=== PATIENT | male | born 1945 | race Caucasian/White ===

== ENCOUNTER 2017-10-11 12:44 | Inpatient (IN) | payer MEDICARE, BC ==
[2017-10-11 14:03] LABS: BILIRUBIN,URINE MODERATE (NEG); CLARITY,URINE CLOUDY; COLOR,URINE AMBER; GLUCOSE,URINE NEGATIVE (NEG); NITRITE,URINE POSITIVE (NEG); PROTEIN,URINE 100 mg/dL (NEG-TRACE)
[2017-10-11 14:08] LABS: BASO # 0.1 x10^3/uL (0.0-0.2); BASO % 0 % (0-3); EOS % 0 % (0-3); HEMOGLOBIN 12.6 g/dL (13.0-17.5); LYMPH # 0.5 x10^3/uL (1.0-4.8); LYMPH % 3 % (24-48); MEAN CORPUSCULAR HEMOGLOBIN 33 pg (25-35); MEAN CORPUSCULAR HGB CONC 34 g/dL (31-37); MEAN CORPUSCULAR VOLUME 98 fL (79-100); MONO # 1.3 x10^3/uL (0.0-1.1); MONO % 6 % (0-9); NEUT # 18.2 x10^3uL (1.8-7.7); NEUT % 91 % (31-73); PLATELET COUNT 358 x10^3/uL (140-400); RED CELL DISTRIBUTION WIDTH 14.3 % (11.5-14.5)
[2017-10-11 14:13] LABS: BACTERIA,URINE MANY /HPF (0-FEW); RBC,URINE OCC /HPF (0-2); SQUAMOUS EPITHELIAL CELL,UR FEW /LPF
[2017-10-11 14:15] LABS: ADD MAN DIFF? YES
[2017-10-11 14:29] LABS: ANION GAP 15 (6-14); BLOOD UREA NITROGEN 24 mg/dL (8-26); CARBON DIOXIDE 26 mmol/L (21-32); CHLORIDE 97 mmol/L (98-107); CREATININE 0.7 mg/dL (0.7-1.3); GFR 111.2; GLUCOSE 135 mg/dL (70-99); POTASSIUM 3.9 mmol/L (3.5-5.1); SODIUM 138 mmol/L (136-145)
[2017-10-11 14:33] LABS: CREATINE KINASE 174 U/L (39-308)
[2017-10-11 14:34] LABS: ALBUMIN 2.2 g/dL (3.4-5.0); ALK PHOS 138 U/L (46-116); ALT (SGPT) 21 U/L (16-63); AST (SGOT) 33 U/L (15-37); DIRECT BILIRUBIN 3.2 mg/dL (0.0-0.2); LIPASE 76 U/L (73-393); TOTAL BILIRUBIN 3.8 mg/dL (0.2-1.0); TOTAL PROTEIN 6.6 g/dL (6.4-8.2)
[2017-10-11 14:36] LABS: LACTIC ACID 1.5 mmol/L (0.4-2.0)
[2017-10-11 14:39] LABS: % BANDS 5 % (0-9); % LYMPHS 9 % (24-48); % MONOS 4 % (0-10); % SEGS 82 % (35-66); PLT ESTIMATE ADEQUATE (ADEQUATE)
[2017-10-11 14:40] LABS: TOXIC GRANULATION SLIGHT
[2017-10-11 14:40] LABS: TROPONINI < 0.017 ng/mL (0.000-0.055)
[2017-10-11] MEDS: IV NORMAL SALINE 1000ML BAG 1,000 ML IV (15:24)
[2017-10-11] MEDS ORDERED: ONDANSETRON PF 4 MG/2 ML VIAL. IV (15:30)
[2017-10-11] MEDS: risperiDONE 1 MG TABLET. PO (21:21)
[2017-10-12] MEDS: LORazepam 0.5 MG TABLET PO (00:10)
[2017-10-12] MEDS: IV NORMAL SALINE 1000ML BAG 1,000 ML IV ×3 (02:28→14:21)
[2017-10-12] MEDS: ACETAMINOPHEN 325 MG TABLET. PO ×2 (03:25→12:08)
[2017-10-12 04:47] LABS: ADD MAN DIFF? NO
[2017-10-12 04:53] LABS: BASO % 0 % (0-3); EOS % 0 % (0-3); HEMATOCRIT 32.8 % (39.0-53.0); LYMPH # 0.7 x10^3/uL (1.0-4.8); LYMPH % 4 % (24-48); MEAN CORPUSCULAR HEMOGLOBIN 33 pg (25-35); MEAN CORPUSCULAR HGB CONC 34 g/dL (31-37); MEAN CORPUSCULAR VOLUME 98 fL (79-100); MONO # 1.1 x10^3/uL (0.0-1.1); MONO % 7 % (0-9); NEUT % 89 % (31-73); PLATELET COUNT 315 x10^3/uL (140-400); RED BLOOD COUNT 3.36 x10^6/uL (4.30-5.70); RED CELL DISTRIBUTION WIDTH 14.5 % (11.5-14.5); WHITE BLOOD COUNT 16.8 x10^3/uL (4.0-11.0)
[2017-10-12 05:07] LABS: ANION GAP 13 (6-14); BLOOD UREA NITROGEN 22 mg/dL (8-26); CALCIUM 9.2 mg/dL (8.5-10.1); CARBON DIOXIDE 24 mmol/L (21-32); CHLORIDE 99 mmol/L (98-107); CREATININE 0.7 mg/dL (0.7-1.3); GFR 111.2; GLUCOSE 129 mg/dL (70-99); POTASSIUM 3.3 mmol/L (3.5-5.1); SODIUM 136 mmol/L (136-145)
[2017-10-12 07:01] LABS: POC GLUCOSE 128 mg/dL (70-99)
[2017-10-12] MEDS: cefTRIAXone IV Push 1 GM VIAL. IVP (08:20)
[2017-10-12] MEDS: MORPHINE SULFATE 2 MG/ML DISP.SYRIN. IV ×2 (08:20→11:45)
[2017-10-12] MEDS ORDERED: POTASSIUM CHLORIDE 20 MEQ/15 ML ORAL LIQUID. PO (10:30)
[2017-10-12] MEDS ORDERED: SODIUM PHOSPHATE 15 MMOL in IV NORMAL SALINE 250ML 250 ML IV (10:30)
[2017-10-12] MEDS ORDERED: POTASSIUM CHLORIDE 20 MEQ/15 ML ORAL LIQUID. FT (10:30)
[2017-10-12 11:44] LABS: CREATINE KINASE 83 U/L (39-308)
[2017-10-12 11:53] LABS: THYROID STIM HORMONE (TSH) 0.126 uIU/mL (0.358-3.74)
[2017-10-12 12:00] LABS: VITAMIN-B12 935 pg/mL (247-911)
[2017-10-12] MEDS: POTASSIUM CHLORIDE 20 MEQ TABLET.ER. PO (12:09)
[2017-10-12] MEDS: PIPERACILLIN/TAZO IV Push 3.375 GM VIAL. IVP (15:16)
[2017-10-12] MEDS: VANCOMYCIN 1.5 GM in IV DEXTROSE 5 %-0.2 % NACL 500 ML IV (15:19)
[2017-10-12 15:26] LABS: LACTIC ACID 1.5 mmol/L (0.4-2.0)
[2017-10-12] MEDS: VANCOMYCIN PER PHARMACY MC (15:29)
[2017-10-12] MEDS ORDERED: POTASSIUM CHLORIDE 20MEQ 50 ML IV (16:30)
[2017-10-12] MEDS ORDERED: PIPERACILLIN/TAZOBACTAM 3.375 GM in IV DEXTROSE 5% 50 ML IV (18:00)
[2017-10-12 18:14] LABS: SEDIMENTATION RATE 105 (0-15)
[2017-10-12] MEDS: POTASSIUM CHLORIDE 10 MEQ in IV NORMAL SALINE 100ML 100 ML IV ×2 (18:22→19:37)
[2017-10-12] MEDS: ENOXAPARIN 40 MG/0.4 ML SYRINGE. SQ (20:55)
[2017-10-12] MEDS ORDERED: POTASSIUM & SODIUM PHOSPHATES PACKET. PO (21:00)
[2017-10-12] MEDS ORDERED: MAGNESIUM OXIDE 400 MG TABLET PO (21:00)
[2017-10-12 21:27] LABS: FREE T4 1.37 ng/dL (0.76-1.46)
[2017-10-12 23:09] LABS: AMMONIA 23 mcmol/L (11-34)
[2017-10-12 23:09] LABS: ALBUMIN 1.7 g/dL (3.4-5.0); ALBUMIN/GLOBULIN RATIO 0.4 (1.0-1.7); ALK PHOS 126 U/L (46-116); ALT (SGPT) 19 U/L (16-63); ANION GAP 13 (6-14); AST (SGOT) 31 U/L (15-37); BLOOD UREA NITROGEN 16 mg/dL (8-26); BUN/CREATININE RATIO 23 (6-20); CALCIUM 8.5 mg/dL (8.5-10.1); CARBON DIOXIDE 23 mmol/L (21-32); CHLORIDE 104 mmol/L (98-107); CREATININE 0.7 mg/dL (0.7-1.3); GFR 111.2; GLUCOSE 117 mg/dL (70-99); POTASSIUM 3.5 mmol/L (3.5-5.1); SODIUM 140 mmol/L (136-145); TOTAL BILIRUBIN 3.1 mg/dL (0.2-1.0); TOTAL PROTEIN 6.4 g/dL (6.4-8.2)
[2017-10-13] MEDS: PIPERACILLIN/TAZO IV Push 3.375 GM VIAL. IVP ×2 (00:03→06:16)
[2017-10-13] MEDS: VANCOMYCIN 1 GM in IV 1/2 NORMAL SALINE 250 ML IV ×2 (03:00→15:45)
[2017-10-13 09:22] LABS: ADD MAN DIFF? NO
[2017-10-13 09:25] LABS: BASO % 0 % (0-3); EOS % 0 % (0-3); HEMATOCRIT 34.4 % (39.0-53.0); HEMOGLOBIN 11.4 g/dL (13.0-17.5); LYMPH # 0.7 x10^3/uL (1.0-4.8); LYMPH % 4 % (24-48); MEAN CORPUSCULAR HEMOGLOBIN 32 pg (25-35); MEAN CORPUSCULAR HGB CONC 33 g/dL (31-37); MEAN CORPUSCULAR VOLUME 98 fL (79-100); MONO % 5 % (0-9); NEUT # 18.4 x10^3uL (1.8-7.7); NEUT % 91 % (31-73); PLATELET COUNT 336 x10^3/uL (140-400); RED BLOOD COUNT 3.53 x10^6/uL (4.30-5.70); RED CELL DISTRIBUTION WIDTH 14.5 % (11.5-14.5); WHITE BLOOD COUNT 20.1 x10^3/uL (4.0-11.0)
[2017-10-13] MEDS ORDERED: ONDANSETRON ODT 4 MG TAB.RAPDIS. PO (09:30)
[2017-10-13] MEDS ORDERED: ONDANSETRON PF 4 MG/2 ML VIAL. IV (09:30)
[2017-10-13 09:49] LABS: ANION GAP 15 (6-14); BLOOD UREA NITROGEN 16 mg/dL (8-26); CALCIUM 8.8 mg/dL (8.5-10.1); CARBON DIOXIDE 24 mmol/L (21-32); CHLORIDE 103 mmol/L (98-107); CREATININE 0.7 mg/dL (0.7-1.3); GFR 111.2; GLUCOSE 119 mg/dL (70-99); PHOSPHORUS 3.5 mg/dL (2.6-4.7); SODIUM 142 mmol/L (136-145)
[2017-10-13 09:54] LABS: POTASSIUM 2.9 mmol/L (3.5-5.1)
[2017-10-13] MEDS: LISINOPRIL 40 MG TABLET. PO (10:36)
[2017-10-13] MEDS: ALLOPURINOL 300 MG TABLET. PO (10:36)
[2017-10-13] MEDS: buPROPion XL 150 MG TAB.ER.24H. PO (10:37)
[2017-10-13] MEDS: TAMSULOSIN 0.4 MG CAP.ER.24H. PO (10:37)
[2017-10-13] MEDS: CITALOPRAM 20 MG TABLET. PO (10:37)
[2017-10-13] MEDS: PANTOPRAZOLE 40 MG TABLET.DR. PO (10:37)
[2017-10-13] MEDS: GABAPENTIN 400 MG CAPSULE. PO ×3 (10:37→21:22)
[2017-10-13] MEDS: ATORVASTATIN CALCIUM 40 MG TABLET. PO (10:37)
[2017-10-13] MEDS: VANCOMYCIN PER PHARMACY MC (13:10)
[2017-10-13 13:16] LABS: RHEUMATOID FACTOR <10.0 IU/mL (0.0-13.9)
[2017-10-13] MEDS: POTASSIUM CHLORIDE 20 MEQ TABLET.ER. PO ×2 (13:47→13:48)
[2017-10-13] MEDS: POTASSIUM CL 30MEQ D5-0.45NACL 1,000 ML IV (13:47)
[2017-10-13] MEDS: ACETAMINOPHEN 325 MG TABLET. PO ×2 (15:48→23:22)
[2017-10-13 16:00] LABS: BF CLARITY TURBID; BF COLOR YELLOW; BF MON % 2 %; BF PMN % 98 %; BF RBC COUNT 22750 /cmm; BF SOURCE SYNOVIAL; BF WBC COUNT 107500 /cmm
[2017-10-13 19:51] LABS: INFLUENZA A PATIENT NEGATIVE (NEGATIVE); INFLUENZA B PATIENT NEGATIVE (NEGATIVE); OBC FLU VALID
[2017-10-13] MEDS: GADOBUTROL 7.5 MMOL/7.5 ML VIAL IV (20:00)
[2017-10-13] MEDS: LACTOBACILLUS RHAMNOSUS GG 1 CAPSULE. PO (21:22)
[2017-10-13] MEDS: ENOXAPARIN 40 MG/0.4 ML SYRINGE. SQ (21:26)
[2017-10-13] MEDS: LABETALOL 20 MG/4 ML DISP.SYRIN. IVP (23:21)
[2017-10-14 04:14] LABS: VANC TR 10.6 mcg/mL (10.0-20.0)
[2017-10-14] MEDS: VANCOMYCIN 1 GM in IV 1/2 NORMAL SALINE 250 ML IV (04:55)
[2017-10-14] MEDS: VANCOMYCIN PER PHARMACY MC ×2 (06:01→06:02)
[2017-10-14] MEDS ORDERED: fentaNYL PF VIAL 100 MCG/2 ML VIAL IV ×2 (07:00)
[2017-10-14] MEDS ORDERED: PROCHLORPERAZINE 10 MG/2 ML VIAL. IV (07:00)
[2017-10-14] MEDS ORDERED: HYDROmorphone 2 MG/ML VIAL IV (07:00)
[2017-10-14] MEDS ORDERED: MORPHINE SULFATE 2 MG/ML DISP.SYRIN. IV (07:00)
[2017-10-14] MEDS: IV RINGERS,LACTATED 1000ML 1,000 ML IV (07:00)
[2017-10-14] MEDS ORDERED: LIDOCAINE 1% PF 2 ML VIAL. ID (07:00)
[2017-10-14] MEDS: PANTOPRAZOLE 40 MG TABLET.DR. PO (07:30)
[2017-10-14 07:53] LABS: ANION GAP 12 (6-14); BLOOD UREA NITROGEN 18 mg/dL (8-26); CALCIUM 8.7 mg/dL (8.5-10.1); CARBON DIOXIDE 24 mmol/L (21-32); CHLORIDE 109 mmol/L (98-107); CREATININE 0.8 mg/dL (0.7-1.3); GFR 95.3; GLUCOSE 135 mg/dL (70-99); POTASSIUM 3.9 mmol/L (3.5-5.1); SODIUM 145 mmol/L (136-145)
[2017-10-14] MEDS: buPROPion XL 150 MG TAB.ER.24H. PO (08:00)
[2017-10-14] MEDS: MELOXICAM 7.5 MG TABLET PO (09:00)
[2017-10-14] MEDS: LACTOBACILLUS RHAMNOSUS GG 1 CAPSULE. PO ×2 (09:00→23:28)
[2017-10-14] MEDS: CITALOPRAM 20 MG TABLET. PO (09:00)
[2017-10-14] MEDS: ALLOPURINOL 300 MG TABLET. PO (09:00)
[2017-10-14] MEDS: ATORVASTATIN CALCIUM 40 MG TABLET. PO (09:00)
[2017-10-14] MEDS: GABAPENTIN 400 MG CAPSULE. PO ×3 (09:00→23:28)
[2017-10-14] MEDS: LISINOPRIL 40 MG TABLET. PO (09:00)
[2017-10-14] MEDS: TAMSULOSIN 0.4 MG CAP.ER.24H. PO (09:00)
[2017-10-14] MEDS: ALBUTEROL SULFATE 2.5 MG/3 ML NEBU. NEB (10:24)
[2017-10-14 10:42] LABS: BASE EXCESS ABG -2 mmol/L (-3-3); HCO3 ABG 23 mmol/L (21-28); PCO2 ABG 37 mmHg (35-46); PH ABG 7.41 (7.35-7.45); PO2 ABG 75 mmHg (65-108); SAT O2 ABG 94 % (92-99)
[2017-10-14] MEDS: IPRATRPIUM/ALBUTEROL 0.5/2.5MG 3 ML NEBU. NEB ×3 (12:00→18:15)
[2017-10-14] MEDS ORDERED: LIDOCAINE 2% PF Vial for OR 5 ML VIAL. (13:24)
[2017-10-14] MEDS ORDERED: DEXAMETHASONE SOD PHOS 20 MG/5 ML VIAL. (13:24)
[2017-10-14] MEDS ORDERED: ONDANSETRON PF 4 MG/2 ML VIAL. (13:24)
[2017-10-14] MEDS ORDERED: PROPOFOL 20 ML IV (13:24)
[2017-10-14] MEDS: BUPIVAC MPF-EPI 0.75%-1:200000 30 ML VIAL. INJ (13:47)
[2017-10-14] MEDS: EPINEPHrine VIAL 30 MG/30 ML VIAL (13:47)
[2017-10-14] MEDS ORDERED: fentaNYL PF VIAL 100 MCG/2 ML VIAL (13:52)
[2017-10-14] MEDS ORDERED: SEVOFLURANE 31 TO 60 MINUTES. IH (14:07)
[2017-10-14] MEDS ORDERED: DEXTROSE 50% 25 GM / 50ML DISP.SYRIN. IV (14:15)
[2017-10-14] MEDS ORDERED: POLYETHYLENE GLYCOL 3350 17 GM PACKET. PO (14:15)
[2017-10-14] MEDS: ASPIRIN 325 MG TABLET PO (15:00)
[2017-10-14] MEDS: oxyCODONE/APAP 7.5/325 1 TAB TABLET PO (16:56)
[2017-10-14] MEDS: SENNOSIDES/DOCUSATE 8.6/50MG TABLET. PO (16:56)
[2017-10-14] MEDS: POTASSIUM CHLORIDE 20 MEQ TABLET.ER. PO (16:58)
[2017-10-14] MEDS: VANCOMYCIN 1.25 GM in IV DEXTROSE 5% 250 ML IV (17:06)
[2017-10-14] MEDS ORDERED: PIPERACILLIN/TAZOBACTAM 3.375 GM in IV DEXTROSE 5% 50 ML IV (18:00)
[2017-10-14] MEDS: PIPERACILLIN/TAZO IV Push 3.375 GM VIAL. IVP ×2 (18:01→23:46)
[2017-10-14] MEDS: HYDROcodone/APAP 5/325MG 1 TAB TABLET PO (23:28)
[2017-10-14] MEDS: ENOXAPARIN 40 MG/0.4 ML SYRINGE. SQ (23:30)
[2017-10-15] MEDS: VANCOMYCIN 1.25 GM in IV DEXTROSE 5% 250 ML IV (05:59)
[2017-10-15] MEDS ORDERED: MAGNESIUM HYDROXIDE 2,400 MG/30 ML ORAL.SUSP. PO (06:00)
[2017-10-15] MEDS: PIPERACILLIN/TAZO IV Push 3.375 GM VIAL. IVP ×3 (07:38→18:34)
[2017-10-15 07:52] LABS: ANION GAP 11 (6-14); BLOOD UREA NITROGEN 47 mg/dL (8-26); CALCIUM 8.2 mg/dL (8.5-10.1); CARBON DIOXIDE 21 mmol/L (21-32); CHLORIDE 101 mmol/L (98-107); CREATININE 2.6 mg/dL (0.7-1.3); GFR 24.5; GLUCOSE 179 mg/dL (70-99); POTASSIUM 5.3 mmol/L (3.5-5.1); SODIUM 133 mmol/L (136-145)
[2017-10-15] MEDS: POTASSIUM CHLORIDE 20 MEQ TABLET.ER. PO (08:00)
[2017-10-15] MEDS: IPRATRPIUM/ALBUTEROL 0.5/2.5MG 3 ML NEBU. NEB ×4 (09:11→19:40)
[2017-10-15] MEDS: ALLOPURINOL 300 MG TABLET. PO (10:33)
[2017-10-15] MEDS: CITALOPRAM 20 MG TABLET. PO (10:33)
[2017-10-15] MEDS: oxyCODONE/APAP 7.5/325 1 TAB TABLET PO (10:33)
[2017-10-15] MEDS: ASPIRIN 325 MG TABLET PO (10:33)
[2017-10-15] MEDS: buPROPion XL 150 MG TAB.ER.24H. PO (10:33)
[2017-10-15] MEDS: LISINOPRIL 40 MG TABLET. PO (10:34)
[2017-10-15] MEDS: MELOXICAM 7.5 MG TABLET PO (10:35)
[2017-10-15] MEDS: LACTOBACILLUS RHAMNOSUS GG 1 CAPSULE. PO (10:35)
[2017-10-15] MEDS: GABAPENTIN 400 MG CAPSULE. PO ×2 (10:35→14:28)
[2017-10-15] MEDS: SENNOSIDES/DOCUSATE 8.6/50MG TABLET. PO (10:36)
[2017-10-15] MEDS: PANTOPRAZOLE 40 MG TABLET.DR. PO (10:36)
[2017-10-15] MEDS: TAMSULOSIN 0.4 MG CAP.ER.24H. PO (10:36)
[2017-10-15] MEDS: ATORVASTATIN CALCIUM 40 MG TABLET. PO (10:36)
[2017-10-15] MEDS ORDERED: BISACODYL 10 MG SUPP.RECT. PR (16:00)
[2017-10-15] MEDS ORDERED: MAGNESIUM SULFATE 2GM 50 ML IV (16:30)
[2017-10-15] MEDS ORDERED: IV NORMAL SALINE 500ML BAG 500 ML IV (16:30)
[2017-10-15 17:33] LABS: URIC ACID 4.3 mg/dL (3.5-7.2)
[2017-10-15 17:33] LABS: CREATINE KINASE 57 U/L (39-308)
[2017-10-15] MEDS: SODIUM POLYSTYRENE SULFONATE 15 GM/60 ML ORAL.SUSP. PO (18:34)
[2017-10-15] MEDS: IV NORMAL SALINE 1000ML BAG 1,000 ML IV (18:39)
[2017-10-16] MEDS: GABAPENTIN 400 MG CAPSULE. PO ×4 (00:17→23:38)
[2017-10-16] MEDS: LACTOBACILLUS RHAMNOSUS GG 1 CAPSULE. PO ×3 (00:17→23:37)
[2017-10-16] MEDS: ENOXAPARIN 30 MG/0.3 ML SYRINGE. SQ ×2 (00:17→23:37)
[2017-10-16] MEDS: IV NORMAL SALINE 1000ML BAG 1,000 ML IV ×3 (00:18→18:39)
[2017-10-16] MEDS: PIPERACILLIN/TAZO IV Push 3.375 GM VIAL. IVP ×3 (02:11→12:00)
[2017-10-16 04:51] LABS: ADD MAN DIFF? NO
[2017-10-16 05:12] LABS: BASO % 0 % (0-3); EOS % 0 % (0-3); HEMATOCRIT 28.1 % (39.0-53.0); HEMOGLOBIN 9.3 g/dL (13.0-17.5); LYMPH % 6 % (24-48); MEAN CORPUSCULAR HEMOGLOBIN 33 pg (25-35); MEAN CORPUSCULAR HGB CONC 33 g/dL (31-37); MEAN CORPUSCULAR VOLUME 98 fL (79-100); MONO # 0.7 x10^3/uL (0.0-1.1); MONO % 5 % (0-9); NEUT # 14.7 x10^3uL (1.8-7.7); NEUT % 89 % (31-73); PLATELET COUNT 307 x10^3/uL (140-400); RED BLOOD COUNT 2.87 x10^6/uL (4.30-5.70); RED CELL DISTRIBUTION WIDTH 14.7 % (11.5-14.5); WHITE BLOOD COUNT 16.6 x10^3/uL (4.0-11.0)
[2017-10-16 05:57] LABS: ALBUMIN 1.3 g/dL (3.4-5.0); ALBUMIN/GLOBULIN RATIO 0.3 (1.0-1.7); ALK PHOS 112 U/L (46-116); ALT (SGPT) 23 U/L (16-63); ANION GAP 14 (6-14); AST (SGOT) 58 U/L (15-37); BLOOD UREA NITROGEN 60 mg/dL (8-26); BUN/CREATININE RATIO 15 (6-20); CALCIUM 7.6 mg/dL (8.5-10.1); CARBON DIOXIDE 19 mmol/L (21-32); CHLORIDE 102 mmol/L (98-107); CREATININE 3.9 mg/dL (0.7-1.3); GFR 15.3; GLUCOSE 113 mg/dL (70-99); MAGNESIUM 1.9 mg/dL (1.8-2.4); PHOSPHORUS 4.2 mg/dL (2.6-4.7); POTASSIUM 4.8 mmol/L (3.5-5.1); SODIUM 135 mmol/L (136-145); TOTAL BILIRUBIN 1.3 mg/dL (0.2-1.0); TOTAL PROTEIN 5.8 g/dL (6.4-8.2)
[2017-10-16] MEDS: IPRATRPIUM/ALBUTEROL 0.5/2.5MG 3 ML NEBU. NEB ×4 (07:34→19:41)
[2017-10-16] MEDS: ASPIRIN 325 MG TABLET PO (08:00)
[2017-10-16 08:53] LABS: BILIRUBIN,URINE NEGATIVE (NEG); CLARITY,URINE CLEAR; COLOR,URINE YELLOW; GLUCOSE,URINE NEGATIVE (NEG); NITRITE,URINE NEGATIVE (NEG); PH,URINE 5.5; PROTEIN,URINE 30 mg/dL (NEG-TRACE)
[2017-10-16] MEDS: ALLOPURINOL 300 MG TABLET. PO (09:00)
[2017-10-16 09:04] LABS: BACTERIA,URINE MODERATE /HPF (0-FEW)
[2017-10-16 09:05] LABS: AMORPHOUS SEDIMENT,UR PRESENT /HPF
[2017-10-16 10:28] LABS: T-SPOT TB TEST(OXFORD) SEE SEPARATE REPORT
[2017-10-16] MEDS: NICOTINE 21MG PATCH. TD (11:46)
[2017-10-16] MEDS: buPROPion XL 150 MG TAB.ER.24H. PO (11:47)
[2017-10-16] MEDS: CITALOPRAM 20 MG TABLET. PO (11:47)
[2017-10-16] MEDS: ATORVASTATIN CALCIUM 40 MG TABLET. PO (11:47)
[2017-10-16] MEDS: TAMSULOSIN 0.4 MG CAP.ER.24H. PO (11:47)
[2017-10-16] MEDS: PANTOPRAZOLE 40 MG TABLET.DR. PO (11:48)
[2017-10-16] MEDS: HYDROcodone/APAP 7.5/325MG 1 TAB TABLET PO (11:48)
[2017-10-16] MEDS: SENNOSIDES/DOCUSATE 8.6/50MG TABLET. PO (11:48)
[2017-10-16] MEDS: LIDOCAINE 2% VISCOUS 15 ML SOLUTION. MM (14:15)
[2017-10-16] MEDS: BENZOCAINE ONE 20% MUCOSAL SPRAY. MM (14:15)
[2017-10-16] MEDS: LIDOCAINE 2% TOPICAL JELLY 5GM TUBE. TP (14:15)
[2017-10-16] MEDS ORDERED: 0.9 % SODIUM CHLORIDE 10 ML DISP.SYRIN. IV (14:15)
[2017-10-16 14:21] LABS: C3 COMPLEMENT 143 mg/dL (82-167); C4 COMPLEMENT 20 mg/dL (14-44)
[2017-10-16] MEDS: PIPERACILLIN/TAZO IV Push 2.25 GM VIAL. IVP ×2 (18:47→23:35)
[2017-10-16] MEDS: HYDROcodone/APAP 5/325MG 1 TAB TABLET PO (23:37)
[2017-10-17] MEDS: IV NORMAL SALINE 1000ML BAG 1,000 ML IV ×4 (02:20→21:26)
[2017-10-17] MEDS: ACETAMINOPHEN 325 MG TABLET. PO (02:20)
[2017-10-17] MEDS: PIPERACILLIN/TAZO IV Push 2.25 GM VIAL. IVP ×5 (06:10→21:27)
[2017-10-17 06:28] LABS: ALBUMIN 1.3 g/dL (3.4-5.0); ANION GAP 18 (6-14); BLOOD UREA NITROGEN 70 mg/dL (8-26); CALCIUM 7.6 mg/dL (8.5-10.1); CARBON DIOXIDE 19 mmol/L (21-32); CHLORIDE 103 mmol/L (98-107); CREATININE 4.9 mg/dL (0.7-1.3); GFR 11.8; GLUCOSE 87 mg/dL (70-99); POTASSIUM 4.4 mmol/L (3.5-5.1); SODIUM 140 mmol/L (136-145)
[2017-10-17] MEDS: IV RINGERS,LACTATED 1000ML 1,000 ML IV (07:00)
[2017-10-17] MEDS ORDERED: fentaNYL PF VIAL 100 MCG/2 ML VIAL IV ×2 (07:00)
[2017-10-17] MEDS ORDERED: MORPHINE SULFATE 2 MG/ML DISP.SYRIN. IV (07:00)
[2017-10-17] MEDS ORDERED: LIDOCAINE 1% PF 2 ML VIAL. ID (07:00)
[2017-10-17] MEDS ORDERED: PROCHLORPERAZINE 10 MG/2 ML VIAL. IV (07:00)
[2017-10-17] MEDS ORDERED: HYDROmorphone 2 MG/ML VIAL IV (07:00)
[2017-10-17] MEDS: IPRATRPIUM/ALBUTEROL 0.5/2.5MG 3 ML NEBU. NEB ×4 (07:26→19:25)
[2017-10-17] MEDS: PANTOPRAZOLE 40 MG TABLET.DR. PO (07:30)
[2017-10-17] MEDS: buPROPion XL 150 MG TAB.ER.24H. PO (08:00)
[2017-10-17] MEDS: ATORVASTATIN CALCIUM 40 MG TABLET. PO (09:00)
[2017-10-17] MEDS: LACTOBACILLUS RHAMNOSUS GG 1 CAPSULE. PO ×2 (09:00→21:27)
[2017-10-17] MEDS: CITALOPRAM 20 MG TABLET. PO (09:00)
[2017-10-17] MEDS: NICOTINE 21MG PATCH. TD (09:00)
[2017-10-17] MEDS: SENNOSIDES/DOCUSATE 8.6/50MG TABLET. PO (09:00)
[2017-10-17] MEDS: TAMSULOSIN 0.4 MG CAP.ER.24H. PO (09:00)
[2017-10-17] MEDS: GABAPENTIN 400 MG CAPSULE. PO ×2 (09:00→14:00)
[2017-10-17] MEDS: LABETALOL 20 MG/4 ML DISP.SYRIN. IVP ×4 (09:34→21:43)
[2017-10-17] MEDS ORDERED: LIDOCAINE WITH 8.4% SOD BICARB 3 ML DISP.SYRIN. IJ (12:37)
[2017-10-17] MEDS ORDERED: HEPARIN for IV BOLUS 10,000 UNIT/10 ML VIAL. (12:37)
[2017-10-17] MEDS ORDERED: PROPOFOL 0 ML IV (12:42)
[2017-10-17] MEDS ORDERED: LIDOCAINE 2% TOPICAL JELLY 5GM TUBE. TP (13:05)
[2017-10-17] MEDS: LIDOCAINE WITH 8.4% SOD BICARB 3 ML DISP.SYRIN. IJ (14:28)
[2017-10-17] MEDS: LIDOCAINE 2% JELLY 6ML IN APPLICATOR. MM (17:00)
[2017-10-17] MEDS: oxyCODONE/APAP 7.5/325 1 TAB TABLET PO (21:28)
[2017-10-17] MEDS: HEPARIN PF for SUB-Q USE 5,000 UNIT/0.5 ML VIAL. SQ (21:41)
[2017-10-18 05:16] LABS: PROTEINASE 3 ANTIBODY 4.5 U/mL (0.0-3.5)
[2017-10-18 05:16] LABS: MYELOPEROXIDASE ABY <9.0 U/mL (0.0-9.0)
[2017-10-18] MEDS: IV NORMAL SALINE 1000ML BAG 1,000 ML IV ×3 (05:19→17:55)
[2017-10-18] MEDS: PANTOPRAZOLE 40 MG TABLET.DR. PO (05:19)
[2017-10-18] MEDS: PIPERACILLIN/TAZO IV Push 2.25 GM VIAL. IVP ×3 (05:19→22:07)
[2017-10-18] MEDS: HEPARIN PF for SUB-Q USE 5,000 UNIT/0.5 ML VIAL. SQ ×3 (05:20→22:14)
[2017-10-18] MEDS: LABETALOL 20 MG/4 ML DISP.SYRIN. IVP (05:20)
[2017-10-18 05:22] LABS: HEMATOCRIT 23.9 % (39.0-53.0); HEMOGLOBIN 7.9 g/dL (13.0-17.5); MEAN CORPUSCULAR HEMOGLOBIN 32 pg (25-35); MEAN CORPUSCULAR HGB CONC 33 g/dL (31-37); MEAN CORPUSCULAR VOLUME 97 fL (79-100); PLATELET COUNT 320 x10^3/uL (140-400); RED BLOOD COUNT 2.45 x10^6/uL (4.30-5.70); RED CELL DISTRIBUTION WIDTH 14.9 % (11.5-14.5)
[2017-10-18 05:59] LABS: ALBUMIN 1.2 g/dL (3.4-5.0); ANION GAP 21 (6-14); BLOOD UREA NITROGEN 75 mg/dL (8-26); CALCIUM 7.8 mg/dL (8.5-10.1); CARBON DIOXIDE 16 mmol/L (21-32); CHLORIDE 105 mmol/L (98-107); CREATININE 5.6 mg/dL (0.7-1.3); GFR 10.1; GLUCOSE 87 mg/dL (70-99); PHOSPHORUS 6.9 mg/dL (2.6-4.7); POTASSIUM 4.6 mmol/L (3.5-5.1); SODIUM 142 mmol/L (136-145)
[2017-10-18] MEDS: IPRATRPIUM/ALBUTEROL 0.5/2.5MG 3 ML NEBU. NEB ×4 (07:45→19:40)
[2017-10-18] MEDS: LIDOCAINE 1% PF 2 ML VIAL. INJ ×2 (09:19→09:30)
[2017-10-18] MEDS: SENNOSIDES/DOCUSATE 8.6/50MG TABLET. PO (10:10)
[2017-10-18] MEDS: GABAPENTIN 400 MG CAPSULE. PO (10:10)
[2017-10-18] MEDS: ATORVASTATIN CALCIUM 40 MG TABLET. PO (10:11)
[2017-10-18] MEDS: LACTOBACILLUS RHAMNOSUS GG 1 CAPSULE. PO ×2 (10:11→21:20)
[2017-10-18] MEDS: ACETAMINOPHEN 325 MG TABLET. PO (10:11)
[2017-10-18] MEDS: buPROPion XL 150 MG TAB.ER.24H. PO (10:11)
[2017-10-18] MEDS: TAMSULOSIN 0.4 MG CAP.ER.24H. PO (10:11)
[2017-10-18] MEDS: CITALOPRAM 20 MG TABLET. PO (10:11)
[2017-10-18] MEDS: NICOTINE 21MG PATCH. TD (10:12)
[2017-10-18 10:18] LABS: INR 1.3 (0.8-1.1); PROTHROMBIN TIME PATIENT 15.2 SEC (11.7-14.0)
[2017-10-18] MEDS: MULTIVITAMIN with MINERAL TABLET. PO (12:45)
[2017-10-18] MEDS: ASCORBIC ACID 500 MG TABLET PO (12:45)
[2017-10-18] MEDS: oxyCODONE/APAP 7.5/325 1 TAB TABLET PO (12:55)
[2017-10-18 15:30] LABS: C ANCA <1:20 titer (Neg:<1:20); P ANCA <1:20 titer (Neg:<1:20)
[2017-10-18] MEDS ORDERED: 0.9 % SODIUM CHLORIDE 10 ML DISP.SYRIN. IV (19:45)
[2017-10-18] MEDS ORDERED: DIALYSIS PATIENT. MC (19:45)
[2017-10-18] MEDS: HYDROcodone/APAP 7.5/325MG 1 TAB TABLET PO (21:20)
[2017-10-19] MEDS: ACETAMINOPHEN 325 MG TABLET. PO ×2 (02:55→09:02)
[2017-10-19 05:48] LABS: ADD MAN DIFF? NO
[2017-10-19 05:53] LABS: BASO # 0.1 x10^3/uL (0.0-0.2); BASO % 0 % (0-3); EOS # 0.1 x10^3/uL (0.0-0.7); EOS % 1 % (0-3); HEMATOCRIT 23.5 % (39.0-53.0); HEMOGLOBIN 7.9 g/dL (13.0-17.5); LYMPH # 1.1 x10^3/uL (1.0-4.8); LYMPH % 7 % (24-48); MEAN CORPUSCULAR HEMOGLOBIN 32 pg (25-35); MEAN CORPUSCULAR HGB CONC 34 g/dL (31-37); MEAN CORPUSCULAR VOLUME 96 fL (79-100); MONO # 1.1 x10^3/uL (0.0-1.1); MONO % 6 % (0-9); NEUT # 14.5 x10^3uL (1.8-7.7); NEUT % 86 % (31-73); PLATELET COUNT 372 x10^3/uL (140-400); RED BLOOD COUNT 2.44 x10^6/uL (4.30-5.70); RED CELL DISTRIBUTION WIDTH 14.5 % (11.5-14.5); WHITE BLOOD COUNT 16.9 x10^3/uL (4.0-11.0)
[2017-10-19] MEDS: HYDROcodone/APAP 5/325MG 1 TAB TABLET PO ×3 (06:27→22:01)
[2017-10-19] MEDS: PIPERACILLIN/TAZO IV Push 2.25 GM VIAL. IVP ×3 (06:27→22:02)
[2017-10-19] MEDS: PANTOPRAZOLE 40 MG TABLET.DR. PO ×2 (06:27→09:02)
[2017-10-19] MEDS: HEPARIN PF for SUB-Q USE 5,000 UNIT/0.5 ML VIAL. SQ ×3 (06:33→22:15)
[2017-10-19 06:59] LABS: ALBUMIN 1.4 g/dL (3.4-5.0); ALT (SGPT) 21 U/L (16-63); ANION GAP 13 (6-14); AST (SGOT) 43 U/L (15-37); BLOOD UREA NITROGEN 47 mg/dL (8-26); BUN/CREATININE RATIO 10 (6-20); CALCIUM 7.7 mg/dL (8.5-10.1); CARBON DIOXIDE 19 mmol/L (21-32); CHLORIDE 104 mmol/L (98-107); CREATININE 4.5 mg/dL (0.7-1.3); GLUCOSE 95 mg/dL (70-99); MAGNESIUM 1.8 mg/dL (1.8-2.4); POTASSIUM 3.9 mmol/L (3.5-5.1); SODIUM 136 mmol/L (136-145)
[2017-10-19] MEDS: IV NORMAL SALINE 1000ML BAG 1,000 ML IV ×2 (07:03→19:33)
[2017-10-19 07:24] LABS: ALBUMIN/GLOBULIN RATIO 0.3 (1.0-1.7); ALK PHOS 103 U/L (46-116); TOTAL BILIRUBIN 0.9 mg/dL (0.2-1.0); TOTAL PROTEIN 6.4 g/dL (6.4-8.2)
[2017-10-19] MEDS: IPRATRPIUM/ALBUTEROL 0.5/2.5MG 3 ML NEBU. NEB ×4 (08:05→19:13)
[2017-10-19] MEDS: NYSTATIN 100,000 UNITS/ML 5 ML ORAL.SUSP. SWSW ×4 (09:00→22:01)
[2017-10-19] MEDS: buPROPion XL 150 MG TAB.ER.24H. PO (09:01)
[2017-10-19] MEDS: ATORVASTATIN CALCIUM 40 MG TABLET. PO (09:01)
[2017-10-19] MEDS: LACTOBACILLUS RHAMNOSUS GG 1 CAPSULE. PO ×2 (09:01→22:01)
[2017-10-19] MEDS: NICOTINE 21MG PATCH. TD (09:01)
[2017-10-19] MEDS: TAMSULOSIN 0.4 MG CAP.ER.24H. PO (09:02)
[2017-10-19] MEDS: ASCORBIC ACID 500 MG TABLET PO (09:02)
[2017-10-19] MEDS: CITALOPRAM 20 MG TABLET. PO (09:02)
[2017-10-19] MEDS: GABAPENTIN 400 MG CAPSULE. PO (09:02)
[2017-10-19] MEDS: SENNOSIDES/DOCUSATE 8.6/50MG TABLET. PO (09:02)
[2017-10-19] MEDS: MULTIVITAMIN with MINERAL TABLET. PO (09:02)
[2017-10-19] MEDS ORDERED: IV NORMAL SALINE 1000ML BAG 1,000 ML IV (14:32)
[2017-10-19] MEDS ORDERED: 0.9 % SODIUM CHLORIDE 10 ML DISP.SYRIN. IV ×2 (14:45)
[2017-10-19] MEDS ORDERED: DIALYSIS PATIENT. MC (14:45)
[2017-10-19 16:18] LABS: HEP B SURFACE ABDY Non Reactive (.); HEP B SURFACE AG Negative (Negative)
[2017-10-20] MEDS: LABETALOL 20 MG/4 ML DISP.SYRIN. IVP (00:15)
[2017-10-20] MEDS: PIPERACILLIN/TAZO IV Push 2.25 GM VIAL. IVP ×3 (05:53→21:55)
[2017-10-20] MEDS: HEPARIN PF for SUB-Q USE 5,000 UNIT/0.5 ML VIAL. SQ ×3 (05:57→22:15)
[2017-10-20 06:37] LABS: ALBUMIN 1.4 g/dL (3.4-5.0); ANION GAP 14 (6-14); BLOOD UREA NITROGEN 27 mg/dL (8-26); CALCIUM 7.4 mg/dL (8.5-10.1); CARBON DIOXIDE 23 mmol/L (21-32); CHLORIDE 101 mmol/L (98-107); CREATININE 3.3 mg/dL (0.7-1.3); GFR 18.6; GLUCOSE 75 mg/dL (70-99); POTASSIUM 3.7 mmol/L (3.5-5.1); SODIUM 138 mmol/L (136-145)
[2017-10-20 06:40] LABS: ANION GAP 13 (6-14); BLOOD UREA NITROGEN 29 mg/dL (8-26); CALCIUM 8.1 mg/dL (8.5-10.1); CARBON DIOXIDE 23 mmol/L (21-32); CHLORIDE 103 mmol/L (98-107); CREATININE 3.3 mg/dL (0.7-1.3); GFR 18.6; GLUCOSE 88 mg/dL (70-99); POTASSIUM 3.5 mmol/L (3.5-5.1); SODIUM 139 mmol/L (136-145)
[2017-10-20 06:43] LABS: MAGNESIUM 1.8 mg/dL (1.8-2.4)
[2017-10-20] MEDS: IPRATRPIUM/ALBUTEROL 0.5/2.5MG 3 ML NEBU. NEB ×4 (07:21→20:46)
[2017-10-20] MEDS: PANTOPRAZOLE 40 MG TABLET.DR. PO (07:30)
[2017-10-20] MEDS: buPROPion XL 150 MG TAB.ER.24H. PO (08:00)
[2017-10-20] MEDS: IV NORMAL SALINE 1000ML BAG 1,000 ML IV (08:03)
[2017-10-20 08:15] LABS: ADD MAN DIFF? NO
[2017-10-20 08:26] LABS: BASO # 0.2 x10^3/uL (0.0-0.2); BASO % 1 % (0-3); EOS # 0.1 x10^3/uL (0.0-0.7); EOS % 1 % (0-3); HEMATOCRIT 22.5 % (39.0-53.0); HEMOGLOBIN 7.5 g/dL (13.0-17.5); LYMPH % 7 % (24-48); MEAN CORPUSCULAR HEMOGLOBIN 32 pg (25-35); MEAN CORPUSCULAR HGB CONC 33 g/dL (31-37); MEAN CORPUSCULAR VOLUME 97 fL (79-100); MONO # 1.1 x10^3/uL (0.0-1.1); MONO % 7 % (0-9); NEUT # 13.4 x10^3uL (1.8-7.7); NEUT % 85 % (31-73); PLATELET COUNT 402 x10^3/uL (140-400); RED BLOOD COUNT 2.32 x10^6/uL (4.30-5.70); RED CELL DISTRIBUTION WIDTH 14.6 % (11.5-14.5); WHITE BLOOD COUNT 15.8 x10^3/uL (4.0-11.0)
[2017-10-20] MEDS: ASCORBIC ACID 500 MG TABLET PO (09:00)
[2017-10-20] MEDS: SENNOSIDES/DOCUSATE 8.6/50MG TABLET. PO (09:00)
[2017-10-20] MEDS: LACTOBACILLUS RHAMNOSUS GG 1 CAPSULE. PO ×2 (09:00→21:54)
[2017-10-20] MEDS: NYSTATIN 100,000 UNITS/ML 5 ML ORAL.SUSP. SWSW ×4 (09:00→21:54)
[2017-10-20] MEDS: MULTIVITAMIN with MINERAL TABLET. PO (09:00)
[2017-10-20] MEDS ORDERED: IV NORMAL SALINE 1000ML BAG 1,000 ML IV ×2 (10:24)
[2017-10-20] MEDS ORDERED: 0.9 % SODIUM CHLORIDE 10 ML DISP.SYRIN. IV ×2 (10:30)
[2017-10-20] MEDS ORDERED: DIALYSIS PATIENT. MC ×2 (10:30)
[2017-10-20] MEDS: METOPROLOL TART IMMED RELEASE 25 MG TABLET. PO ×2 (11:30→21:55)
[2017-10-20] MEDS: GABAPENTIN 400 MG CAPSULE. PO (15:29)
[2017-10-20] MEDS: CITALOPRAM 20 MG TABLET. PO (15:29)
[2017-10-20] MEDS: NICOTINE 21MG PATCH. TD (15:29)
[2017-10-20] MEDS: TAMSULOSIN 0.4 MG CAP.ER.24H. PO (15:30)
[2017-10-20] MEDS: ATORVASTATIN CALCIUM 40 MG TABLET. PO (15:30)
[2017-10-20] MEDS: AMINO AC 3%/ELECTROLYTE/GLYCER 1,000 ML IV ×2 (15:30→23:00)
[2017-10-20] MEDS: HYDROcodone/APAP 7.5/325MG 1 TAB TABLET PO (15:33)
[2017-10-20] MEDS: HYDROcodone/APAP 5/325MG 1 TAB TABLET PO (21:54)
[2017-10-20] MEDS: BACLOFEN 10 MG TABLET. PO (21:55)
[2017-10-21] MEDS: LABETALOL 20 MG/4 ML DISP.SYRIN. IVP ×3 (00:04→20:40)
[2017-10-21] MEDS: ACETAMINOPHEN 325 MG TABLET. PO (00:05)
[2017-10-21] MEDS: AMINO AC 3%/ELECTROLYTE/GLYCER 1,000 ML IV ×2 (05:25→20:45)
[2017-10-21] MEDS: PIPERACILLIN/TAZO IV Push 2.25 GM VIAL. IVP ×3 (05:26→22:07)
[2017-10-21] MEDS: HEPARIN PF for SUB-Q USE 5,000 UNIT/0.5 ML VIAL. SQ ×3 (05:44→22:13)
[2017-10-21] MEDS: HYDROcodone/APAP 5/325MG 1 TAB TABLET PO (05:46)
[2017-10-21] MEDS: PANTOPRAZOLE 40 MG TABLET.DR. PO (05:46)
[2017-10-21 06:35] LABS: ALBUMIN 1.4 g/dL (3.4-5.0); ANION GAP 11 (6-14); BLOOD UREA NITROGEN 21 mg/dL (8-26); CALCIUM 8.5 mg/dL (8.5-10.1); CARBON DIOXIDE 28 mmol/L (21-32); CHLORIDE 102 mmol/L (98-107); GFR 20.7; GLUCOSE 100 mg/dL (70-99); PHOSPHORUS 3.5 mg/dL (2.6-4.7); POTASSIUM 3.5 mmol/L (3.5-5.1); SODIUM 141 mmol/L (136-145)
[2017-10-21] MEDS: IPRATRPIUM/ALBUTEROL 0.5/2.5MG 3 ML NEBU. NEB ×4 (07:11→20:55)
[2017-10-21] MEDS: buPROPion XL 150 MG TAB.ER.24H. PO (08:00)
[2017-10-21] MEDS: ASCORBIC ACID 500 MG TABLET PO (09:00)
[2017-10-21] MEDS: MULTIVITAMIN with MINERAL TABLET. PO (09:00)
[2017-10-21] MEDS: GABAPENTIN 400 MG CAPSULE. PO (09:00)
[2017-10-21] MEDS: TAMSULOSIN 0.4 MG CAP.ER.24H. PO (09:00)
[2017-10-21] MEDS: NYSTATIN 100,000 UNITS/ML 5 ML ORAL.SUSP. SWSW ×4 (09:00→21:00)
[2017-10-21] MEDS: CITALOPRAM 20 MG TABLET. PO (09:00)
[2017-10-21] MEDS: LACTOBACILLUS RHAMNOSUS GG 1 CAPSULE. PO ×2 (09:00→21:00)
[2017-10-21] MEDS: SENNOSIDES/DOCUSATE 8.6/50MG TABLET. PO (09:00)
[2017-10-21] MEDS: ATORVASTATIN CALCIUM 40 MG TABLET. PO (09:00)
[2017-10-21] MEDS: METOPROLOL TART IMMED RELEASE 25 MG TABLET. PO ×2 (09:22→21:00)
[2017-10-21] MEDS: BACLOFEN 10 MG TABLET. PO ×3 (09:22→21:00)
[2017-10-21] MEDS: NICOTINE 21MG PATCH. TD (09:23)
[2017-10-21 10:04] LABS: ADD MAN DIFF? NO
[2017-10-21 10:45] LABS: BASO # 0.1 x10^3/uL (0.0-0.2); BASO % 1 % (0-3); EOS # 0.1 x10^3/uL (0.0-0.7); EOS % 1 % (0-3); HEMATOCRIT 23.5 % (39.0-53.0); HEMOGLOBIN 7.9 g/dL (13.0-17.5); LYMPH # 1.4 x10^3/uL (1.0-4.8); LYMPH % 8 % (24-48); MEAN CORPUSCULAR HEMOGLOBIN 33 pg (25-35); MEAN CORPUSCULAR HGB CONC 33 g/dL (31-37); MEAN CORPUSCULAR VOLUME 99 fL (79-100); MONO # 1.3 x10^3/uL (0.0-1.1); MONO % 7 % (0-9); NEUT % 84 % (31-73); PLATELET COUNT 453 x10^3/uL (140-400); RED BLOOD COUNT 2.38 x10^6/uL (4.30-5.70); RED CELL DISTRIBUTION WIDTH 14.6 % (11.5-14.5); WHITE BLOOD COUNT 17.9 x10^3/uL (4.0-11.0)
[2017-10-21] MEDS ORDERED: HALOPERIDOL LACTATE 5 MG/ML VIAL. IVP (13:30)
[2017-10-21 15:59] LABS: POC GLUCOSE 122 mg/dL (70-99)
[2017-10-21 18:26] LABS: AMMONIA < 10 mcmol/L (11-34)
[2017-10-21 20:21] LABS: POC GLUCOSE 126 mg/dL (70-99)
[2017-10-22] MEDS: LABETALOL 20 MG/4 ML DISP.SYRIN. IVP ×3 (04:44→20:34)
[2017-10-22] MEDS: PIPERACILLIN/TAZO IV Push 2.25 GM VIAL. IVP ×3 (05:57→21:29)
[2017-10-22] MEDS: HEPARIN PF for SUB-Q USE 5,000 UNIT/0.5 ML VIAL. SQ ×3 (05:58→21:33)
[2017-10-22 06:55] LABS: ALBUMIN 1.2 g/dL (3.4-5.0); ANION GAP 12 (6-14); BLOOD UREA NITROGEN 33 mg/dL (8-26); CALCIUM 8.2 mg/dL (8.5-10.1); CARBON DIOXIDE 25 mmol/L (21-32); CHLORIDE 102 mmol/L (98-107); CREATININE 3.8 mg/dL (0.7-1.3); GFR 15.8; GLUCOSE 126 mg/dL (70-99); PHOSPHORUS 5.6 mg/dL (2.6-4.7); POTASSIUM 3.7 mmol/L (3.5-5.1); SODIUM 139 mmol/L (136-145)
[2017-10-22] MEDS: IPRATRPIUM/ALBUTEROL 0.5/2.5MG 3 ML NEBU. NEB ×4 (08:00→19:34)
[2017-10-22] MEDS: buPROPion XL 150 MG TAB.ER.24H. PO (08:00)
[2017-10-22 08:03] LABS: SEDIMENTATION RATE > 130 (0-15)
[2017-10-22] MEDS: NICOTINE 21MG PATCH. TD (08:36)
[2017-10-22] MEDS: NYSTATIN 100,000 UNITS/ML 5 ML ORAL.SUSP. SWSW ×4 (08:36→21:00)
[2017-10-22] MEDS: PANTOPRAZOLE IV PUSH 40 MG VIAL. IVP (08:36)
[2017-10-22] MEDS: METOPROLOL TART IMMED RELEASE 25 MG TABLET. PO (08:37)
[2017-10-22] MEDS: TAMSULOSIN 0.4 MG CAP.ER.24H. PO (08:37)
[2017-10-22] MEDS: ATORVASTATIN CALCIUM 40 MG TABLET. PO (08:37)
[2017-10-22] MEDS: CITALOPRAM 20 MG TABLET. PO (08:37)
[2017-10-22] MEDS: BACLOFEN 10 MG TABLET. PO (08:37)
[2017-10-22] MEDS: LACTOBACILLUS RHAMNOSUS GG 1 CAPSULE. PO ×2 (08:37→21:00)
[2017-10-22] MEDS: GABAPENTIN 400 MG CAPSULE. PO (08:38)
[2017-10-22] MEDS: SENNOSIDES/DOCUSATE 8.6/50MG TABLET. PO (08:38)
[2017-10-22] MEDS: ASCORBIC ACID 500 MG TABLET PO (08:38)
[2017-10-22] MEDS: MULTIVITAMIN with MINERAL TABLET. PO (08:38)
[2017-10-22] MEDS: AMINO AC 3%/ELECTROLYTE/GLYCER 1,000 ML IV ×2 (08:40→20:35)
[2017-10-22 22:55] LABS: BASO % 0 % (0-3); EOS # 0.1 x10^3/uL (0.0-0.7); EOS % 1 % (0-3); HEMATOCRIT 22.3 % (39.0-53.0); HEMOGLOBIN 7.2 g/dL (13.0-17.5); LYMPH # 1.5 x10^3/uL (1.0-4.8); LYMPH % 7 % (24-48); MEAN CORPUSCULAR HEMOGLOBIN 33 pg (25-35); MEAN CORPUSCULAR HGB CONC 32 g/dL (31-37); MEAN CORPUSCULAR VOLUME 102 fL (79-100); MONO # 1.3 x10^3/uL (0.0-1.1); MONO % 6 % (0-9); NEUT # 18.6 x10^3uL (1.8-7.7); NEUT % 87 % (31-73); PLATELET COUNT 410 x10^3/uL (140-400); RED BLOOD COUNT 2.19 x10^6/uL (4.30-5.70); RED CELL DISTRIBUTION WIDTH 15.7 % (11.5-14.5); WHITE BLOOD COUNT 21.5 x10^3/uL (4.0-11.0)
[2017-10-22 23:10] LABS: ADD MAN DIFF? YES
[2017-10-22 23:12] LABS: % BANDS 9 % (0-9); % LYMPHS 4 % (24-48); % MONOS 4 % (0-10); % SEGS 83 % (35-66)
[2017-10-22 23:17] LABS: PLT ESTIMATE ADEQUATE (ADEQUATE); POLYCHROMASIA SLIGHT; TOXIC GRANULATION SLIGHT
[2017-10-23] MEDS: LABETALOL 20 MG/4 ML DISP.SYRIN. IVP ×5 (00:20→21:31)
[2017-10-23 04:11] LABS: ADD MAN DIFF? NO
[2017-10-23 04:27] LABS: BASO # 0.1 x10^3/uL (0.0-0.2); BASO % 1 % (0-3); EOS # 0.2 x10^3/uL (0.0-0.7); EOS % 1 % (0-3); HEMATOCRIT 21.1 % (39.0-53.0); HEMOGLOBIN 7.1 g/dL (13.0-17.5); LYMPH # 1.2 x10^3/uL (1.0-4.8); LYMPH % 6 % (24-48); MEAN CORPUSCULAR HEMOGLOBIN 33 pg (25-35); MEAN CORPUSCULAR HGB CONC 34 g/dL (31-37); MEAN CORPUSCULAR VOLUME 98 fL (79-100); MONO # 0.9 x10^3/uL (0.0-1.1); MONO % 5 % (0-9); NEUT # 16.1 x10^3uL (1.8-7.7); NEUT % 87 % (31-73); PLATELET COUNT 388 x10^3/uL (140-400); RED BLOOD COUNT 2.16 x10^6/uL (4.30-5.70); RED CELL DISTRIBUTION WIDTH 14.5 % (11.5-14.5); WHITE BLOOD COUNT 18.4 x10^3/uL (4.0-11.0)
[2017-10-23 04:45] LABS: ALBUMIN 1.2 g/dL (3.4-5.0); ALBUMIN/GLOBULIN RATIO 0.2 (1.0-1.7); ALK PHOS 98 U/L (46-116); ALT (SGPT) 16 U/L (16-63); ANION GAP 12 (6-14); AST (SGOT) 35 U/L (15-37); BLOOD UREA NITROGEN 41 mg/dL (8-26); BUN/CREATININE RATIO 10 (6-20); CALCIUM 8.4 mg/dL (8.5-10.1); CARBON DIOXIDE 26 mmol/L (21-32); CHLORIDE 101 mmol/L (98-107); CREATININE 4.3 mg/dL (0.7-1.3); GFR 13.7; GLUCOSE 116 mg/dL (70-99); POTASSIUM 3.5 mmol/L (3.5-5.1); SODIUM 139 mmol/L (136-145); TOTAL BILIRUBIN 0.6 mg/dL (0.2-1.0); TOTAL PROTEIN 6.2 g/dL (6.4-8.2)
[2017-10-23] MEDS: PIPERACILLIN/TAZO IV Push 2.25 GM VIAL. IVP ×2 (05:52→13:46)
[2017-10-23] MEDS: HEPARIN PF for SUB-Q USE 5,000 UNIT/0.5 ML VIAL. SQ ×3 (05:59→21:32)
[2017-10-23] MEDS: PANTOPRAZOLE IV PUSH 40 MG VIAL. IVP (06:04)
[2017-10-23] MEDS: IPRATRPIUM/ALBUTEROL 0.5/2.5MG 3 ML NEBU. NEB ×4 (07:45→19:41)
[2017-10-23] MEDS ORDERED: IV NORMAL SALINE 1000ML BAG 1,000 ML IV ×2 (08:43)
[2017-10-23] MEDS ORDERED: DIALYSIS PATIENT. MC (08:45)
[2017-10-23] MEDS ORDERED: diphenhydrAMINE 50 MG/ML VIAL IV ×2 (08:45)
[2017-10-23] MEDS: NICOTINE 21MG PATCH. TD (08:46)
[2017-10-23] MEDS: NYSTATIN 100,000 UNITS/ML 5 ML ORAL.SUSP. SWSW ×4 (08:46→21:00)
[2017-10-23] MEDS: AMINO AC 3%/ELECTROLYTE/GLYCER 1,000 ML IV ×3 (08:46→21:30)
[2017-10-23] MEDS: LACTOBACILLUS RHAMNOSUS GG 1 CAPSULE. PO ×2 (08:47→21:00)
[2017-10-23] MEDS ORDERED: ceFAZolin SODIUM 1 GM in IV DEXTROSE 5% 50 ML IV (14:00)
[2017-10-23] MEDS: ceFAZolin SODIUM IV Push 1 GM VIAL. IVP (15:25)
[2017-10-23] MEDS: ENALAPRILAT 2.5 MG/2 ML VIAL. IV (16:33)
[2017-10-23] MEDS: cloNIDine TTS-3 1 PATCH PATCH.TDWK TD (17:36)
[2017-10-24 04:59] LABS: ADD MAN DIFF? NO
[2017-10-24 05:24] LABS: BASO # 0.1 x10^3/uL (0.0-0.2); BASO % 0 % (0-3); EOS # 0.1 x10^3/uL (0.0-0.7); EOS % 1 % (0-3); HEMATOCRIT 22.4 % (39.0-53.0); HEMOGLOBIN 7.5 g/dL (13.0-17.5); LYMPH # 1.5 x10^3/uL (1.0-4.8); LYMPH % 8 % (24-48); MEAN CORPUSCULAR HEMOGLOBIN 33 pg (25-35); MEAN CORPUSCULAR HGB CONC 34 g/dL (31-37); MEAN CORPUSCULAR VOLUME 99 fL (79-100); MONO # 0.9 x10^3/uL (0.0-1.1); MONO % 5 % (0-9); NEUT # 14.9 x10^3uL (1.8-7.7); NEUT % 85 % (31-73); PLATELET COUNT 409 x10^3/uL (140-400); RED BLOOD COUNT 2.27 x10^6/uL (4.30-5.70); RED CELL DISTRIBUTION WIDTH 14.6 % (11.5-14.5); WHITE BLOOD COUNT 17.5 x10^3/uL (4.0-11.0)
[2017-10-24] MEDS: LABETALOL 20 MG/4 ML DISP.SYRIN. IVP ×2 (05:41→11:23)
[2017-10-24] MEDS: HEPARIN PF for SUB-Q USE 5,000 UNIT/0.5 ML VIAL. SQ ×3 (05:51→21:39)
[2017-10-24] MEDS: IPRATRPIUM/ALBUTEROL 0.5/2.5MG 3 ML NEBU. NEB ×4 (07:37→19:10)
[2017-10-24] MEDS: LACTOBACILLUS RHAMNOSUS GG 1 CAPSULE. PO ×2 (08:59→21:00)
[2017-10-24] MEDS: PANTOPRAZOLE IV PUSH 40 MG VIAL. IVP (09:06)
[2017-10-24] MEDS: NICOTINE 21MG PATCH. TD (09:06)
[2017-10-24] MEDS: NYSTATIN 100,000 UNITS/ML 5 ML ORAL.SUSP. SWSW ×4 (09:06→21:00)
[2017-10-24] MEDS: ceFAZolin SODIUM IV Push 1 GM VIAL. IVP (09:06)
[2017-10-24] MEDS: ENALAPRILAT 2.5 MG/2 ML VIAL. IV (09:08)
[2017-10-24] MEDS: AMINO AC 3%/ELECTROLYTE/GLYCER 1,000 ML IV (09:12)
[2017-10-24] MEDS ORDERED: PIPERACILLIN/TAZOBACTAM 2.25 GM in IV DEXTROSE 5% 50 ML IV (11:00)
[2017-10-24] MEDS: ERGOCALCIFEROL (VITAMIN D2) 50,000 UNIT CAPSULE. PO (11:00)
[2017-10-24] MEDS: PIPERACILLIN/TAZO IV Push 2.25 GM VIAL. IVP ×3 (11:26→21:37)
[2017-10-24] MEDS: LISINOPRIL 40 MG TABLET. PO (16:31)
[2017-10-24] MEDS: amLODIPine BESYLATE 10 MG TABLET PO (16:32)
[2017-10-24] MEDS: HYDROcodone/APAP 5/325MG 1 TAB TABLET PO (16:51)
[2017-10-24] MEDS: DARBEPOETIN ALFA 60 MCG/0.3 ML DISP.SYRIN. SQ (21:35)
[2017-10-25 05:58] LABS: ADD MAN DIFF? NO
[2017-10-25] MEDS: PANTOPRAZOLE IV PUSH 40 MG VIAL. IVP (06:00)
[2017-10-25] MEDS: PIPERACILLIN/TAZO IV Push 2.25 GM VIAL. IVP ×3 (06:01→21:26)
[2017-10-25] MEDS: HEPARIN PF for SUB-Q USE 5,000 UNIT/0.5 ML VIAL. SQ ×3 (06:06→21:39)
[2017-10-25 06:20] LABS: ANION GAP 11 (6-14); BLOOD UREA NITROGEN 35 mg/dL (8-26); CALCIUM 7.9 mg/dL (8.5-10.1); CARBON DIOXIDE 26 mmol/L (21-32); CHLORIDE 100 mmol/L (98-107); CREATININE 3.5 mg/dL (0.7-1.3); GFR 17.4; GLUCOSE 110 mg/dL (70-99); POTASSIUM 3.6 mmol/L (3.5-5.1); SODIUM 137 mmol/L (136-145)
[2017-10-25 06:25] LABS: BASO # 0.1 x10^3/uL (0.0-0.2); BASO % 1 % (0-3); EOS # 0.2 x10^3/uL (0.0-0.7); EOS % 1 % (0-3); LYMPH # 1.7 x10^3/uL (1.0-4.8); LYMPH % 10 % (24-48); MEAN CORPUSCULAR HEMOGLOBIN 33 pg (25-35); MEAN CORPUSCULAR HGB CONC 34 g/dL (31-37); MEAN CORPUSCULAR VOLUME 98 fL (79-100); MONO % 6 % (0-9); NEUT # 14.3 x10^3uL (1.8-7.7); NEUT % 82 % (31-73); PLATELET COUNT 344 x10^3/uL (140-400); RED CELL DISTRIBUTION WIDTH 14.7 % (11.5-14.5); WHITE BLOOD COUNT 17.4 x10^3/uL (4.0-11.0)
[2017-10-25 06:47] LABS: HEMOGLOBIN 6.7 g/dL (13.0-17.5)
[2017-10-25 06:48] LABS: HEMATOCRIT 19.7 % (39.0-53.0)
[2017-10-25] MEDS ORDERED: IV NORMAL SALINE 1000ML BAG 1,000 ML IV ×2 (08:33)
[2017-10-25] MEDS ORDERED: DIALYSIS PATIENT. MC ×2 (08:45)
[2017-10-25] MEDS: IPRATRPIUM/ALBUTEROL 0.5/2.5MG 3 ML NEBU. NEB ×4 (09:38→20:14)
[2017-10-25] MEDS: NICOTINE 21MG PATCH. TD (11:01)
[2017-10-25] MEDS: LACTOBACILLUS RHAMNOSUS GG 1 CAPSULE. PO ×2 (11:02→21:25)
[2017-10-25] MEDS: NYSTATIN 100,000 UNITS/ML 5 ML ORAL.SUSP. SWSW ×4 (11:02→21:25)
[2017-10-25] MEDS: amLODIPine BESYLATE 10 MG TABLET PO (11:02)
[2017-10-25] MEDS: LISINOPRIL 40 MG TABLET. PO (11:02)
[2017-10-25] MEDS: AMINO AC 3%/ELECTROLYTE/GLYCER 1,000 ML IV ×2 (13:42→21:27)
[2017-10-25] MEDS ORDERED: LIDOCAINE WITH 8.4% SOD BICARB 3 ML DISP.SYRIN. IJ (13:53)
[2017-10-25] MEDS: LIDOCAINE WITH 8.4% SOD BICARB 3 ML DISP.SYRIN. IJ (14:09)
[2017-10-25] MEDS: oxyCODONE/APAP 7.5/325 1 TAB TABLET PO (21:26)
[2017-10-26] MEDS: HYDROcodone/APAP 7.5/325MG 1 TAB TABLET PO ×2 (01:43→06:23)
[2017-10-26] MEDS: PIPERACILLIN/TAZO IV Push 2.25 GM VIAL. IVP (06:23)
[2017-10-26] MEDS: HEPARIN PF for SUB-Q USE 5,000 UNIT/0.5 ML VIAL. SQ ×3 (06:29→22:00)
[2017-10-26 06:33] LABS: ADD MAN DIFF? NO
[2017-10-26] MEDS: IPRATRPIUM/ALBUTEROL 0.5/2.5MG 3 ML NEBU. NEB ×4 (06:59→18:03)
[2017-10-26 07:09] LABS: BASO # 0.1 x10^3/uL (0.0-0.2); BASO % 1 % (0-3); EOS # 0.2 x10^3/uL (0.0-0.7); EOS % 1 % (0-3); HEMOGLOBIN 7.2 g/dL (13.0-17.5); LYMPH # 1.4 x10^3/uL (1.0-4.8); LYMPH % 10 % (24-48); MEAN CORPUSCULAR HEMOGLOBIN 33 pg (25-35); MEAN CORPUSCULAR HGB CONC 35 g/dL (31-37); MEAN CORPUSCULAR VOLUME 97 fL (79-100); MONO % 7 % (0-9); NEUT # 11.4 x10^3uL (1.8-7.7); NEUT % 81 % (31-73); PLATELET COUNT 330 x10^3/uL (140-400); RED BLOOD COUNT 2.17 x10^6/uL (4.30-5.70); RED CELL DISTRIBUTION WIDTH 14.7 % (11.5-14.5); WHITE BLOOD COUNT 14.2 x10^3/uL (4.0-11.0)
[2017-10-26 07:09] LABS: TRIGLYCERIDES 144 mg/dL (0-150)
[2017-10-26] MEDS: FUROSEMIDE 100 MG/10 ML VIAL. IVP ×2 (10:27→15:04)
[2017-10-26] MEDS: PANTOPRAZOLE IV PUSH 40 MG VIAL. IVP (10:41)
[2017-10-26] MEDS: LACTOBACILLUS RHAMNOSUS GG 1 CAPSULE. PO ×2 (10:43→21:00)
[2017-10-26] MEDS: NICOTINE 21MG PATCH. TD (10:43)
[2017-10-26] MEDS: amLODIPine BESYLATE 10 MG TABLET PO (10:44)
[2017-10-26] MEDS: LISINOPRIL 40 MG TABLET. PO (10:44)
[2017-10-26] MEDS: NYSTATIN 100,000 UNITS/ML 5 ML ORAL.SUSP. SWSW ×4 (10:48→21:00)
[2017-10-26] MEDS: HYDROcodone/APAP 5/325MG 1 TAB TABLET PO ×2 (10:48→21:09)
[2017-10-26] MEDS ORDERED: TPN PER PHARMACY MC (14:15)
[2017-10-26] MEDS: TPN PER PHARMACY MC (14:45)
[2017-10-26] MEDS: AMINO AC 3%/ELECTROLYTE/GLYCER 1,000 ML IV (15:02)
[2017-10-26] MEDS: PIPERACILLIN/TAZOBACTAM 2.25 GM in IV NORMAL SALINE 50ML 50 ML IV ×2 (15:05→22:55)
[2017-10-26] MEDS: TOTAL PARENTERAL NUTRITION IV (22:56)
[2017-10-26] MEDS: DEXTROSE 70% IV (22:56)
[2017-10-26] MEDS: [UNRECOGNIZED DRUG - OTHER] IV (22:56)
[2017-10-26] MEDS: AMINO ACIDS IV (22:56)
[2017-10-27] MEDS: HEPARIN PF for SUB-Q USE 5,000 UNIT/0.5 ML VIAL. SQ ×3 (05:15→22:20)
[2017-10-27] MEDS: PIPERACILLIN/TAZOBACTAM 2.25 GM in IV NORMAL SALINE 50ML 50 ML IV (05:22)
[2017-10-27] MEDS: HYDROcodone/APAP 7.5/325MG 1 TAB TABLET PO (05:44)
[2017-10-27 05:56] LABS: INR 1.2 (0.8-1.1); PROTHROMBIN TIME PATIENT 14.9 SEC (11.7-14.0)
[2017-10-27 05:57] LABS: PARTIAL THROMBOPLASTIN TIME 32 SEC (24-38)
[2017-10-27 06:05] LABS: ANION GAP 11 (6-14); BLOOD UREA NITROGEN 33 mg/dL (8-26); CALCIUM 7.9 mg/dL (8.5-10.1); CARBON DIOXIDE 27 mmol/L (21-32); CHLORIDE 97 mmol/L (98-107); GFR 20.7; GLUCOSE 109 mg/dL (70-99); MAGNESIUM 1.9 mg/dL (1.8-2.4); PHOSPHORUS 4.5 mg/dL (2.6-4.7); POTASSIUM 3.3 mmol/L (3.5-5.1); SODIUM 135 mmol/L (136-145)
[2017-10-27] MEDS: IPRATRPIUM/ALBUTEROL 0.5/2.5MG 3 ML NEBU. NEB ×4 (07:08→18:07)
[2017-10-27] MEDS: PANTOPRAZOLE IV PUSH 40 MG VIAL. IVP (08:06)
[2017-10-27] MEDS: NICOTINE 21MG PATCH. TD (08:10)
[2017-10-27] MEDS: FUROSEMIDE 100 MG/10 ML VIAL. IVP ×2 (08:11→15:23)
[2017-10-27] MEDS: LISINOPRIL 40 MG TABLET. PO (08:15)
[2017-10-27] MEDS: amLODIPine BESYLATE 10 MG TABLET PO (08:15)
[2017-10-27] MEDS: NYSTATIN 100,000 UNITS/ML 5 ML ORAL.SUSP. SWSW ×5 (08:15→22:16)
[2017-10-27] MEDS: LACTOBACILLUS RHAMNOSUS GG 1 CAPSULE. PO ×2 (08:15→21:00)
[2017-10-27] MEDS ORDERED: HEPARIN for IV BOLUS 10,000 UNIT/10 ML VIAL. (08:23)
[2017-10-27] MEDS ORDERED: LIDOCAINE 2%/EPI 1:100,000 20 ML VIAL. (08:23)
[2017-10-27] MEDS ORDERED: IV NORMAL SALINE 1000ML BAG 1,000 ML IV (08:33)
[2017-10-27] MEDS ORDERED: diphenhydrAMINE 50 MG/ML VIAL IV ×2 (08:45)
[2017-10-27] MEDS ORDERED: ALBUMIN HUMAN 25% 200 ML IV (08:45)
[2017-10-27] MEDS ORDERED: ACETAMINOPHEN 500 MG TABLET PO (08:45)
[2017-10-27] MEDS ORDERED: DIALYSIS PATIENT. MC ×2 (08:45)
[2017-10-27] MEDS ORDERED: MIDAZOLAM HCL/PF 2 MG/2 ML VIAL. (09:09)
[2017-10-27] MEDS ORDERED: fentaNYL PF VIAL 100 MCG/2 ML VIAL (09:09)
[2017-10-27] MEDS ORDERED: ceFAZolin 1GM IVPB FOR OMNI 100 ML IV (09:28)
[2017-10-27] MEDS: fentaNYL PF VIAL 100 MCG/2 ML VIAL IV (09:30)
[2017-10-27] MEDS: MIDAZOLAM HCL/PF 2 MG/2 ML VIAL. IV (09:30)
[2017-10-27] MEDS: LIDOCAINE 2%/EPI 1:100,000 20 ML VIAL. IJ (09:30)
[2017-10-27] MEDS: TPN PER PHARMACY MC (13:33)
[2017-10-27] MEDS ORDERED: ceFAZolin SODIUM 1 GM in IV DEXTROSE 5% 50 ML IV (15:00)
[2017-10-27] MEDS: ceFAZolin SODIUM IV Push 1 GM VIAL. IVP (15:24)
[2017-10-27] MEDS ORDERED: ONDANSETRON PF 4 MG/2 ML VIAL. IV (15:30)
[2017-10-27] MEDS: LABETALOL 20 MG/4 ML DISP.SYRIN. IVP (15:30)
[2017-10-27] MEDS ORDERED: HYDROcodone/APAP 5/325MG 1 TAB TABLET PO (15:30)
[2017-10-27] MEDS: [UNRECOGNIZED DRUG - OTHER] IV (22:22)
[2017-10-27] MEDS: AMINO ACIDS IV (22:22)
[2017-10-27] MEDS: TOTAL PARENTERAL NUTRITION IV (22:22)
[2017-10-27] MEDS: DEXTROSE 70% IV (22:22)
[2017-10-28] MEDS: HEPARIN PF for SUB-Q USE 5,000 UNIT/0.5 ML VIAL. SQ ×3 (06:41→22:52)
[2017-10-28 06:47] LABS: ANION GAP 10 (6-14); BLOOD UREA NITROGEN 23 mg/dL (8-26); CALCIUM 8.3 mg/dL (8.5-10.1); CARBON DIOXIDE 29 mmol/L (21-32); CHLORIDE 98 mmol/L (98-107); CREATININE 2.2 mg/dL (0.7-1.3); GFR 29.7; GLUCOSE 102 mg/dL (70-99); POTASSIUM 3.7 mmol/L (3.5-5.1); SODIUM 137 mmol/L (136-145)
[2017-10-28] MEDS: IPRATRPIUM/ALBUTEROL 0.5/2.5MG 3 ML NEBU. NEB ×4 (07:18→20:51)
[2017-10-28] MEDS: PANTOPRAZOLE IV PUSH 40 MG VIAL. IVP (08:03)
[2017-10-28] MEDS: NICOTINE 21MG PATCH. TD (09:15)
[2017-10-28] MEDS: FUROSEMIDE 100 MG/10 ML VIAL. IVP ×2 (09:15→14:15)
[2017-10-28] MEDS: LACTOBACILLUS RHAMNOSUS GG 1 CAPSULE. PO ×2 (09:15→22:29)
[2017-10-28] MEDS: amLODIPine BESYLATE 10 MG TABLET PO (09:16)
[2017-10-28] MEDS: NYSTATIN 100,000 UNITS/ML 5 ML ORAL.SUSP. SWSW ×4 (09:16→22:29)
[2017-10-28] MEDS: LISINOPRIL 40 MG TABLET. PO (09:16)
[2017-10-28] MEDS ORDERED: IV NORMAL SALINE 1000ML BAG 1,000 ML IV (11:31)
[2017-10-28] MEDS ORDERED: ACETAMINOPHEN 500 MG TABLET PO (11:45)
[2017-10-28] MEDS ORDERED: ALBUMIN HUMAN 25% 200 ML IV (11:45)
[2017-10-28] MEDS ORDERED: diphenhydrAMINE 50 MG/ML VIAL IV ×2 (11:45)
[2017-10-28] MEDS ORDERED: DIALYSIS PATIENT. MC ×2 (11:45)
[2017-10-28] MEDS: TPN PER PHARMACY MC (13:13)
[2017-10-28] MEDS: ceFAZolin SODIUM IV Push 1 GM VIAL. IVP (22:29)
[2017-10-28] MEDS: HYDROcodone/APAP 7.5/325MG 1 TAB TABLET PO (22:30)
[2017-10-28] MEDS: [UNRECOGNIZED DRUG - OTHER] IV (22:31)
[2017-10-28] MEDS: TOTAL PARENTERAL NUTRITION IV (22:31)
[2017-10-28] MEDS: DEXTROSE 70% IV (22:31)
[2017-10-28] MEDS: AMINO ACIDS IV (22:31)
[2017-10-29] MEDS: ENALAPRILAT 2.5 MG/2 ML VIAL. IV (05:44)
[2017-10-29] MEDS: HEPARIN PF for SUB-Q USE 5,000 UNIT/0.5 ML VIAL. SQ ×3 (05:46→21:39)
[2017-10-29] MEDS: PANTOPRAZOLE IV PUSH 40 MG VIAL. IVP (05:47)
[2017-10-29] MEDS: IPRATRPIUM/ALBUTEROL 0.5/2.5MG 3 ML NEBU. NEB ×4 (07:23→19:18)
[2017-10-29 08:35] LABS: ANION GAP 12 (6-14); BLOOD UREA NITROGEN 21 mg/dL (8-26); CALCIUM 8.5 mg/dL (8.5-10.1); CARBON DIOXIDE 27 mmol/L (21-32); CHLORIDE 98 mmol/L (98-107); GFR 33.1; GLUCOSE 107 mg/dL (70-99); PHOSPHORUS 3.6 mg/dL (2.6-4.7); POTASSIUM 3.7 mmol/L (3.5-5.1); SODIUM 137 mmol/L (136-145)
[2017-10-29] MEDS: NICOTINE 21MG PATCH. TD (09:00)
[2017-10-29] MEDS: LISINOPRIL 40 MG TABLET. PO (09:56)
[2017-10-29] MEDS: LACTOBACILLUS RHAMNOSUS GG 1 CAPSULE. PO ×2 (09:56→21:41)
[2017-10-29] MEDS: FUROSEMIDE 100 MG/10 ML VIAL. IVP (09:57)
[2017-10-29] MEDS: amLODIPine BESYLATE 10 MG TABLET PO (09:57)
[2017-10-29] MEDS: NYSTATIN 100,000 UNITS/ML 5 ML ORAL.SUSP. SWSW ×5 (09:57→21:37)
[2017-10-29] MEDS: TPN PER PHARMACY MC ×2 (13:26→13:27)
[2017-10-29] MEDS: ceFAZolin SODIUM IV Push 1 GM VIAL. IVP (14:05)
[2017-10-29] MEDS: HYDROcodone/APAP 7.5/325MG 1 TAB TABLET PO (21:37)
[2017-10-29] MEDS: AMINO ACIDS IV (21:37)
[2017-10-29] MEDS: TOTAL PARENTERAL NUTRITION IV (21:37)
[2017-10-29] MEDS: [UNRECOGNIZED DRUG - OTHER] IV (21:37)
[2017-10-29] MEDS: DEXTROSE 70% IV (21:37)
[2017-10-29] MEDS: LABETALOL 20 MG/4 ML DISP.SYRIN. IVP (21:44)
[2017-10-29] MEDS ORDERED: DEXTROSE 70% IV ×2 (22:00)
[2017-10-29] MEDS ORDERED: AMINO ACIDS IV ×2 (22:00)
[2017-10-29] MEDS ORDERED: [UNRECOGNIZED DRUG - OTHER] IV ×2 (22:00)
[2017-10-29] MEDS ORDERED: TOTAL PARENTERAL NUTRITION IV ×2 (22:00)
[2017-10-30] MEDS: ENALAPRILAT 2.5 MG/2 ML VIAL. IV (00:32)
[2017-10-30] MEDS: PANTOPRAZOLE IV PUSH 40 MG VIAL. IVP (05:49)
[2017-10-30] MEDS: HEPARIN PF for SUB-Q USE 5,000 UNIT/0.5 ML VIAL. SQ ×3 (05:57→20:34)
[2017-10-30] MEDS: IPRATRPIUM/ALBUTEROL 0.5/2.5MG 3 ML NEBU. NEB ×4 (07:16→19:18)
[2017-10-30 08:24] LABS: ALBUMIN 1.6 g/dL (3.4-5.0); ALBUMIN/GLOBULIN RATIO 0.3 (1.0-1.7); ALK PHOS 140 U/L (46-116); ALT (SGPT) 10 U/L (16-63); ANION GAP 10 (6-14); AST (SGOT) 35 U/L (15-37); BLOOD UREA NITROGEN 38 mg/dL (8-26); BUN/CREATININE RATIO 15 (6-20); CALCIUM 8.2 mg/dL (8.5-10.1); CARBON DIOXIDE 26 mmol/L (21-32); CHLORIDE 100 mmol/L (98-107); CREATININE 2.5 mg/dL (0.7-1.3); GFR 25.6; GLUCOSE 107 mg/dL (70-99); PHOSPHORUS 5.5 mg/dL (2.6-4.7); POTASSIUM 4.1 mmol/L (3.5-5.1); SODIUM 136 mmol/L (136-145); TOTAL BILIRUBIN 0.4 mg/dL (0.2-1.0); TOTAL PROTEIN 7.4 g/dL (6.4-8.2)
[2017-10-30] MEDS: cloNIDine TTS-3 1 PATCH PATCH.TDWK TD (09:00)
[2017-10-30] MEDS: NICOTINE 21MG PATCH. TD (09:39)
[2017-10-30] MEDS: NYSTATIN 100,000 UNITS/ML 5 ML ORAL.SUSP. SWSW ×4 (09:39→21:00)
[2017-10-30] MEDS: amLODIPine BESYLATE 10 MG TABLET PO (09:40)
[2017-10-30] MEDS: LACTOBACILLUS RHAMNOSUS GG 1 CAPSULE. PO ×2 (09:41→20:25)
[2017-10-30] MEDS: LISINOPRIL 40 MG TABLET. PO (09:42)
[2017-10-30] MEDS: FUROSEMIDE 100 MG/10 ML VIAL. IVP (09:44)
[2017-10-30] MEDS: LABETALOL 20 MG/4 ML DISP.SYRIN. IVP (09:45)
[2017-10-30] MEDS: IV 1/2 NORMAL SALINE 1,000 ML IV (12:54)
[2017-10-30] MEDS: hydrALAZINE 25 MG TABLET PO ×2 (12:55→20:25)
[2017-10-30] MEDS: TPN PER PHARMACY MC (13:41)
[2017-10-30] MEDS: ceFAZolin SODIUM IV Push 1 GM VIAL. IVP (15:32)
[2017-10-30] MEDS: ACETAMINOPHEN 500 MG TABLET PO (20:26)
[2017-10-30] MEDS: DEXTROSE 70% IV (22:00)
[2017-10-30] MEDS: [UNRECOGNIZED DRUG - OTHER] IV (22:00)
[2017-10-30] MEDS: AMINO ACIDS IV (22:00)
[2017-10-30] MEDS: TOTAL PARENTERAL NUTRITION IV (22:00)
[2017-10-30] MEDS: oxyCODONE/APAP 7.5/325 1 TAB TABLET PO (22:44)
[2017-10-31] MEDS: IV 1/2 NORMAL SALINE 1,000 ML IV ×2 (03:02→13:20)
[2017-10-31] MEDS: LABETALOL 20 MG/4 ML DISP.SYRIN. IVP (03:03)
[2017-10-31 05:44] LABS: ANION GAP 13 (6-14); BLOOD UREA NITROGEN 54 mg/dL (8-26); CALCIUM 7.9 mg/dL (8.5-10.1); CARBON DIOXIDE 24 mmol/L (21-32); CHLORIDE 100 mmol/L (98-107); CREATININE 2.8 mg/dL (0.7-1.3); GFR 22.5; GLUCOSE 112 mg/dL (70-99); PHOSPHORUS 5.7 mg/dL (2.6-4.7); POTASSIUM 4.1 mmol/L (3.5-5.1); SODIUM 137 mmol/L (136-145)
[2017-10-31] MEDS: PANTOPRAZOLE IV PUSH 40 MG VIAL. IVP (05:59)
[2017-10-31] MEDS: HEPARIN PF for SUB-Q USE 5,000 UNIT/0.5 ML VIAL. SQ ×3 (06:07→21:59)
[2017-10-31] MEDS: ERGOCALCIFEROL (VITAMIN D2) 50,000 UNIT CAPSULE. PO (08:03)
[2017-10-31] MEDS: LACTOBACILLUS RHAMNOSUS GG 1 CAPSULE. PO ×2 (08:03→21:56)
[2017-10-31] MEDS: NYSTATIN 100,000 UNITS/ML 5 ML ORAL.SUSP. SWSW ×4 (08:03→22:07)
[2017-10-31] MEDS: amLODIPine BESYLATE 10 MG TABLET PO (08:04)
[2017-10-31] MEDS: LISINOPRIL 40 MG TABLET. PO (08:05)
[2017-10-31] MEDS: hydrALAZINE 25 MG TABLET PO ×3 (08:05→21:56)
[2017-10-31] MEDS: NICOTINE 21MG PATCH. TD (08:06)
[2017-10-31] MEDS: IPRATRPIUM/ALBUTEROL 0.5/2.5MG 3 ML NEBU. NEB ×4 (08:54→19:42)
[2017-10-31] MEDS: oxyCODONE/APAP 7.5/325 1 TAB TABLET PO ×2 (11:25→21:55)
[2017-10-31] MEDS: TPN PER PHARMACY MC (13:20)
[2017-10-31] MEDS: ceFAZolin SODIUM IV Push 1 GM VIAL. IVP (15:19)
[2017-10-31 16:51] LABS: ADD MAN DIFF? NO
[2017-10-31 16:59] LABS: BASO # 0.1 x10^3/uL (0.0-0.2); BASO % 1 % (0-3); EOS # 0.3 x10^3/uL (0.0-0.7); EOS % 2 % (0-3); LYMPH # 1.9 x10^3/uL (1.0-4.8); LYMPH % 12 % (24-48); MEAN CORPUSCULAR HEMOGLOBIN 33 pg (25-35); MEAN CORPUSCULAR HGB CONC 33 g/dL (31-37); MEAN CORPUSCULAR VOLUME 100 fL (79-100); MONO # 1.5 x10^3/uL (0.0-1.1); MONO % 9 % (0-9); NEUT # 12.2 x10^3uL (1.8-7.7); NEUT % 76 % (31-73); PLATELET COUNT 224 x10^3/uL (140-400); RED BLOOD COUNT 1.72 x10^6/uL (4.30-5.70); RED CELL DISTRIBUTION WIDTH 15.4 % (11.5-14.5)
[2017-10-31 17:04] LABS: HEMATOCRIT 17.2 % (39.0-53.0); HEMOGLOBIN 5.7 g/dL (13.0-17.5)
[2017-10-31] MEDS: DARBEPOETIN ALFA 60 MCG/0.3 ML DISP.SYRIN. SQ (21:56)
[2017-10-31] MEDS: AMINO ACIDS IV (22:07)
[2017-10-31] MEDS: TOTAL PARENTERAL NUTRITION IV (22:07)
[2017-10-31] MEDS: DEXTROSE 70% IV (22:07)
[2017-10-31] MEDS: [UNRECOGNIZED DRUG - OTHER] IV (22:07)
[2017-11-01] MEDS: IV 1/2 NORMAL SALINE 1,000 ML IV ×2 (03:30→20:19)
[2017-11-01] MEDS: PANTOPRAZOLE IV PUSH 40 MG VIAL. IVP (05:27)
[2017-11-01] MEDS: HEPARIN PF for SUB-Q USE 5,000 UNIT/0.5 ML VIAL. SQ (05:28)
[2017-11-01 06:35] LABS: ANION GAP 11 (6-14); BLOOD UREA NITROGEN 63 mg/dL (8-26); CALCIUM 7.7 mg/dL (8.5-10.1); CARBON DIOXIDE 22 mmol/L (21-32); CHLORIDE 104 mmol/L (98-107); CREATININE 2.8 mg/dL (0.7-1.3); GFR 22.5; GLUCOSE 104 mg/dL (70-99); MAGNESIUM 2.4 mg/dL (1.8-2.4); PHOSPHORUS 5.4 mg/dL (2.6-4.7); POTASSIUM 4.3 mmol/L (3.5-5.1); SODIUM 137 mmol/L (136-145)
[2017-11-01] MEDS: IPRATRPIUM/ALBUTEROL 0.5/2.5MG 3 ML NEBU. NEB ×4 (07:27→20:00)
[2017-11-01] MEDS: NICOTINE 21MG PATCH. TD (09:00)
[2017-11-01] MEDS: oxyCODONE/APAP 7.5/325 1 TAB TABLET PO ×2 (09:26→19:29)
[2017-11-01] MEDS: hydrALAZINE 25 MG TABLET PO ×3 (09:26→21:04)
[2017-11-01] MEDS: LISINOPRIL 40 MG TABLET. PO (09:26)
[2017-11-01] MEDS: LACTOBACILLUS RHAMNOSUS GG 1 CAPSULE. PO ×2 (09:26→21:02)
[2017-11-01] MEDS: amLODIPine BESYLATE 10 MG TABLET PO (09:27)
[2017-11-01] MEDS: NYSTATIN 100,000 UNITS/ML 5 ML ORAL.SUSP. SWSW ×4 (09:28→21:04)
[2017-11-01] MEDS: FERROUS SULFATE 325 MG TABLET. PO (09:31)
[2017-11-01 10:32] LABS: % SAT IRON 10 % (15-34); IRON,SERUM 15 ug/dL (65-175)
[2017-11-01] MEDS: IRON SUCROSE COMPLEX 200 MG in IV NORMAL SALINE 100ML 100 ML IV (12:01)
[2017-11-01] MEDS: TPN PER PHARMACY MC (14:22)
[2017-11-01] MEDS: ceFAZolin SODIUM IV Push 1 GM VIAL. IVP (15:02)
[2017-11-01] MEDS: [UNRECOGNIZED DRUG - OTHER] IV (22:22)
[2017-11-01] MEDS: TOTAL PARENTERAL NUTRITION IV (22:22)
[2017-11-01] MEDS: DEXTROSE 70% IV (22:22)
[2017-11-01] MEDS: AMINO ACIDS IV (22:22)
[2017-11-02 06:13] LABS: ANION GAP 13 (6-14); BLOOD UREA NITROGEN 71 mg/dL (8-26); CARBON DIOXIDE 21 mmol/L (21-32); CHLORIDE 104 mmol/L (98-107); CREATININE 2.8 mg/dL (0.7-1.3); GFR 22.5; GLUCOSE 111 mg/dL (70-99); MAGNESIUM 2.6 mg/dL (1.8-2.4); POTASSIUM 4.6 mmol/L (3.5-5.1); SODIUM 138 mmol/L (136-145)
[2017-11-02] MEDS: PANTOPRAZOLE IV PUSH 40 MG VIAL. IVP (06:22)
[2017-11-02] MEDS: hydrALAZINE 25 MG TABLET PO ×3 (08:36→21:24)
[2017-11-02] MEDS: LISINOPRIL 40 MG TABLET. PO (08:37)
[2017-11-02] MEDS: amLODIPine BESYLATE 10 MG TABLET PO (08:37)
[2017-11-02] MEDS: FERROUS SULFATE 325 MG TABLET. PO (08:38)
[2017-11-02] MEDS: oxyCODONE/APAP 7.5/325 1 TAB TABLET PO ×2 (08:38→21:21)
[2017-11-02] MEDS: LACTOBACILLUS RHAMNOSUS GG 1 CAPSULE. PO ×2 (08:38→21:21)
[2017-11-02] MEDS: IV 1/2 NORMAL SALINE 1,000 ML IV ×2 (08:39→21:24)
[2017-11-02] MEDS: IPRATRPIUM/ALBUTEROL 0.5/2.5MG 3 ML NEBU. NEB ×4 (08:39→19:37)
[2017-11-02] MEDS: NYSTATIN 100,000 UNITS/ML 5 ML ORAL.SUSP. SWSW ×4 (08:55→21:00)
[2017-11-02] MEDS: NICOTINE 21MG PATCH. TD (08:56)
[2017-11-02 09:27] LABS: ADD MAN DIFF? NO
[2017-11-02 09:32] LABS: BASO # 0.1 x10^3/uL (0.0-0.2); BASO % 1 % (0-3); EOS # 0.3 x10^3/uL (0.0-0.7); EOS % 3 % (0-3); LYMPH # 1.1 x10^3/uL (1.0-4.8); LYMPH % 12 % (24-48); MEAN CORPUSCULAR HEMOGLOBIN 33 pg (25-35); MEAN CORPUSCULAR HGB CONC 33 g/dL (31-37); MEAN CORPUSCULAR VOLUME 98 fL (79-100); MONO # 0.9 x10^3/uL (0.0-1.1); MONO % 10 % (0-9); NEUT # 6.8 x10^3uL (1.8-7.7); NEUT % 74 % (31-73); PLATELET COUNT 214 x10^3/uL (140-400); RED BLOOD COUNT 2.08 x10^6/uL (4.30-5.70); RED CELL DISTRIBUTION WIDTH 14.9 % (11.5-14.5); WHITE BLOOD COUNT 9.1 x10^3/uL (4.0-11.0)
[2017-11-02 09:38] LABS: HEMATOCRIT 20.4 % (39.0-53.0); HEMOGLOBIN 6.7 g/dL (13.0-17.5)
[2017-11-02] MEDS: HYDROcodone/APAP 7.5/325MG 1 TAB TABLET PO ×2 (11:28→18:45)
[2017-11-02] MEDS: TPN PER PHARMACY MC (12:41)
[2017-11-02] MEDS ORDERED: LIDOCAINE 1%/EPI 1:100,000 20 ML VIAL. (14:34)
[2017-11-02] MEDS: LIDOCAINE 2%/EPI 1:100,000 20 ML VIAL. IJ (15:07)
[2017-11-02] MEDS: ceFAZolin SODIUM IV Push 1 GM VIAL. IVP (15:56)
[2017-11-02] MEDS: TOTAL PARENTERAL NUTRITION IV (21:19)
[2017-11-02] MEDS: DEXTROSE 70% IV (21:19)
[2017-11-02] MEDS: AMINO ACIDS IV (21:19)
[2017-11-02] MEDS: [UNRECOGNIZED DRUG - OTHER] IV (21:19)
[2017-11-02 21:33] LABS: BILIRUBIN,URINE NEGATIVE (NEG); CLARITY,URINE CLEAR; COLOR,URINE YELLOW; GLUCOSE,URINE NEGATIVE (NEG); NITRITE,URINE NEGATIVE (NEG); PH,URINE 5.5; PROTEIN,URINE NEGATIVE (NEG-TRACE); UROBILINOGEN,URINE 0.2 mg/dL (0.2 mg/dL)
[2017-11-02 21:38] LABS: AMORPHOUS SEDIMENT,UR PRESENT /HPF; BACTERIA,URINE 0 /HPF (0-FEW); SQUAMOUS EPITHELIAL CELL,UR FEW /LPF
[2017-11-02 21:39] LABS: GRANULAR CASTS,URINE OCCASIONAL /HPF
[2017-11-03] MEDS: fentaNYL PF VIAL 100 MCG/2 ML VIAL IV ×4 (06:47→21:30)
[2017-11-03] MEDS ORDERED: LIDOCAINE 1% PF 2 ML VIAL. ID (07:00)
[2017-11-03] MEDS ORDERED: HYDROmorphone 2 MG/ML VIAL IV (07:00)
[2017-11-03] MEDS ORDERED: MORPHINE SULFATE 2 MG/ML DISP.SYRIN. IV (07:00)
[2017-11-03] MEDS ORDERED: PROCHLORPERAZINE 10 MG/2 ML VIAL. IV (07:00)
[2017-11-03] MEDS ORDERED: fentaNYL PF VIAL 100 MCG/2 ML VIAL IV (07:00)
[2017-11-03] MEDS: IPRATRPIUM/ALBUTEROL 0.5/2.5MG 3 ML NEBU. NEB ×4 (07:18→20:29)
[2017-11-03 07:39] LABS: ALBUMIN 1.6 g/dL (3.4-5.0); ANION GAP 14 (6-14); BLOOD UREA NITROGEN 71 mg/dL (8-26); CALCIUM 8.1 mg/dL (8.5-10.1); CARBON DIOXIDE 17 mmol/L (21-32); CHLORIDE 105 mmol/L (98-107); CREATININE 2.5 mg/dL (0.7-1.3); GFR 25.6; GLUCOSE 122 mg/dL (70-99); PHOSPHORUS 4.4 mg/dL (2.6-4.7); POTASSIUM 4.6 mmol/L (3.5-5.1); SODIUM 136 mmol/L (136-145)
[2017-11-03 07:42] LABS: HEMATOCRIT 22.5 % (39.0-53.0); HEMOGLOBIN 7.6 g/dL (13.0-17.5); MEAN CORPUSCULAR HEMOGLOBIN 33 pg (25-35); MEAN CORPUSCULAR HGB CONC 34 g/dL (31-37); MEAN CORPUSCULAR VOLUME 98 fL (79-100); PLATELET COUNT 217 x10^3/uL (140-400); RED CELL DISTRIBUTION WIDTH 14.6 % (11.5-14.5); WHITE BLOOD COUNT 9.5 x10^3/uL (4.0-11.0)
[2017-11-03] MEDS: FERROUS SULFATE 325 MG TABLET. PO (08:00)
[2017-11-03] MEDS: NYSTATIN 100,000 UNITS/ML 5 ML ORAL.SUSP. SWSW ×4 (09:00→21:00)
[2017-11-03] MEDS: amLODIPine BESYLATE 10 MG TABLET PO (09:00)
[2017-11-03] MEDS: LISINOPRIL 40 MG TABLET. PO (09:00)
[2017-11-03] MEDS: NICOTINE 21MG PATCH. TD (09:00)
[2017-11-03] MEDS: LACTOBACILLUS RHAMNOSUS GG 1 CAPSULE. PO ×2 (09:00→21:29)
[2017-11-03] MEDS: hydrALAZINE 25 MG TABLET PO ×3 (09:00→21:29)
[2017-11-03] MEDS: PANTOPRAZOLE IV PUSH 40 MG VIAL. IVP (10:07)
[2017-11-03] MEDS: IV 1/2 NORMAL SALINE 1,000 ML IV ×2 (10:16→22:10)
[2017-11-03 12:28] LABS: MAGNESIUM 2.5 mg/dL (1.8-2.4)
[2017-11-03] MEDS: TPN PER PHARMACY MC (12:54)
[2017-11-03] MEDS ORDERED: PROPOFOL 20 ML IV (14:36)
[2017-11-03] MEDS ORDERED: LIDOCAINE 1% PF 5 ML VIAL. (14:37)
[2017-11-03] MEDS ORDERED: fentaNYL PF VIAL 100 MCG/2 ML VIAL (14:39)
[2017-11-03] MEDS ORDERED: DEXAMETHASONE SOD PHOS 20 MG/5 ML VIAL. (14:40)
[2017-11-03] MEDS ORDERED: ONDANSETRON PF 4 MG/2 ML VIAL. (14:40)
[2017-11-03] MEDS: ceFAZolin SODIUM IV Push 1 GM VIAL. IVP ×2 (15:00→16:00)
[2017-11-03] MEDS: EPINEPHrine VIAL 30 MG/30 ML VIAL (16:05)
[2017-11-03] MEDS: BUPIVACAINE-EPI 0.25%-1:200000 50 ML VIAL. (16:05)
[2017-11-03] MEDS: IV RINGERS,LACTATED 1000ML 1,000 ML IV (16:19)
[2017-11-03] MEDS: IV NORMAL SALINE 1000ML BAG 1,000 ML IV (16:30)
[2017-11-03] MEDS: oxyCODONE/APAP 7.5/325 1 TAB TABLET PO (22:19)
[2017-11-03] MEDS: AMINO ACIDS IV (22:21)
[2017-11-03] MEDS: [UNRECOGNIZED DRUG - OTHER] IV (22:21)
[2017-11-03] MEDS: DEXTROSE 70% IV (22:21)
[2017-11-03] MEDS: TOTAL PARENTERAL NUTRITION IV (22:21)
[2017-11-04 06:23] LABS: ADD MAN DIFF? NO
[2017-11-04 06:36] LABS: BASO # 0.1 x10^3/uL (0.0-0.2); BASO % 1 % (0-3); EOS % 0 % (0-3); LYMPH # 1.1 x10^3/uL (1.0-4.8); LYMPH % 9 % (24-48); MEAN CORPUSCULAR HEMOGLOBIN 32 pg (25-35); MEAN CORPUSCULAR HGB CONC 33 g/dL (31-37); MEAN CORPUSCULAR VOLUME 97 fL (79-100); MONO % 8 % (0-9); NEUT # 10.4 x10^3uL (1.8-7.7); NEUT % 83 % (31-73); PLATELET COUNT 252 x10^3/uL (140-400); RED BLOOD COUNT 1.98 x10^6/uL (4.30-5.70); RED CELL DISTRIBUTION WIDTH 14.5 % (11.5-14.5); WHITE BLOOD COUNT 12.6 x10^3/uL (4.0-11.0)
[2017-11-04 06:39] LABS: HEMATOCRIT 19.1 % (39.0-53.0); HEMOGLOBIN 6.3 g/dL (13.0-17.5)
[2017-11-04 06:40] LABS: ANION GAP 13 (6-14); BLOOD UREA NITROGEN 66 mg/dL (8-26); CALCIUM 8.6 mg/dL (8.5-10.1); CARBON DIOXIDE 18 mmol/L (21-32); CHLORIDE 107 mmol/L (98-107); CREATININE 2.2 mg/dL (0.7-1.3); GFR 29.7; GLUCOSE 112 mg/dL (70-99); POTASSIUM 4.7 mmol/L (3.5-5.1); SODIUM 138 mmol/L (136-145)
[2017-11-04 06:44] LABS: PHOSPHORUS 4.2 mg/dL (2.6-4.7)
[2017-11-04 06:44] LABS: MAGNESIUM 2.4 mg/dL (1.8-2.4)
[2017-11-04] MEDS ORDERED: IRON SUCROSE COMPLEX 200 MG in IV NORMAL SALINE 100ML 100 ML IV (08:00)
[2017-11-04 08:08] LABS: SEDIMENTATION RATE > 130 (0-15)
[2017-11-04] MEDS: IPRATRPIUM/ALBUTEROL 0.5/2.5MG 3 ML NEBU. NEB ×4 (08:26→19:53)
[2017-11-04] MEDS: NICOTINE 21MG PATCH. TD (09:00)
[2017-11-04] MEDS: HYDROcodone/APAP 7.5/325MG 1 TAB TABLET PO (09:33)
[2017-11-04] MEDS: IRON SUCROSE COMPLEX 100 MG/5 ML VIAL IVP (09:37)
[2017-11-04] MEDS: FERROUS SULFATE 325 MG TABLET. PO (09:37)
[2017-11-04] MEDS: amLODIPine BESYLATE 10 MG TABLET PO (09:39)
[2017-11-04] MEDS: LACTOBACILLUS RHAMNOSUS GG 1 CAPSULE. PO ×2 (09:39→21:36)
[2017-11-04] MEDS: NYSTATIN 100,000 UNITS/ML 5 ML ORAL.SUSP. SWSW ×4 (09:40→21:37)
[2017-11-04] MEDS: LISINOPRIL 40 MG TABLET. PO (09:40)
[2017-11-04] MEDS: ASPIRIN 325 MG TABLET PO (09:41)
[2017-11-04] MEDS: hydrALAZINE 25 MG TABLET PO ×3 (09:41→18:06)
[2017-11-04] MEDS: PANTOPRAZOLE IV PUSH 40 MG VIAL. IVP (09:41)
[2017-11-04] MEDS: MORPHINE ER 15 MG TABLET.ER PO ×2 (10:30→21:37)
[2017-11-04] MEDS: IV 1/2 NORMAL SALINE 1,000 ML IV (11:30)
[2017-11-04] MEDS: TPN PER PHARMACY MC (12:08)
[2017-11-04] MEDS: IV NORMAL SALINE 1000ML BAG 1,000 ML IV (12:30)
[2017-11-04] MEDS: BACLOFEN 10 MG TABLET. PO (15:29)
[2017-11-04] MEDS: oxyCODONE/APAP 7.5/325 1 TAB TABLET PO (17:59)
[2017-11-04] MEDS ORDERED: oxyCODONE IR 5 MG TABLET PO (18:45)
[2017-11-04] MEDS ORDERED: MORPHINE ER 15 MG TABLET.ER PO (21:00)
[2017-11-04] MEDS: [UNRECOGNIZED DRUG - OTHER] IV (21:49)
[2017-11-04] MEDS: TOTAL PARENTERAL NUTRITION IV (21:49)
[2017-11-04] MEDS: AMINO ACIDS IV (21:49)
[2017-11-04] MEDS: DEXTROSE 70% IV (21:49)
[2017-11-05] MEDS: IV 1/2 NORMAL SALINE 1,000 ML IV ×3 (02:00→21:18)
[2017-11-05 06:24] LABS: ADD MAN DIFF? NO
[2017-11-05] MEDS: BACLOFEN 10 MG TABLET. PO (06:41)
[2017-11-05] MEDS: oxyCODONE/APAP 7.5/325 1 TAB TABLET PO (06:42)
[2017-11-05 06:46] LABS: BASO # 0.2 x10^3/uL (0.0-0.2); BASO % 1 % (0-3); EOS # 0.4 x10^3/uL (0.0-0.7); EOS % 3 % (0-3); HEMATOCRIT 22.5 % (39.0-53.0); HEMOGLOBIN 7.3 g/dL (13.0-17.5); LYMPH # 1.1 x10^3/uL (1.0-4.8); LYMPH % 8 % (24-48); MEAN CORPUSCULAR HEMOGLOBIN 32 pg (25-35); MEAN CORPUSCULAR HGB CONC 32 g/dL (31-37); MEAN CORPUSCULAR VOLUME 98 fL (79-100); MONO % 8 % (0-9); NEUT # 10.9 x10^3uL (1.8-7.7); NEUT % 80 % (31-73); PLATELET COUNT 296 x10^3/uL (140-400); RED BLOOD COUNT 2.29 x10^6/uL (4.30-5.70); RED CELL DISTRIBUTION WIDTH 15.2 % (11.5-14.5); WHITE BLOOD COUNT 13.7 x10^3/uL (4.0-11.0)
[2017-11-05 06:48] LABS: ALBUMIN 1.8 g/dL (3.4-5.0); ALBUMIN/GLOBULIN RATIO 0.3 (1.0-1.7); ALK PHOS 213 U/L (46-116); ALT (SGPT) 24 U/L (16-63); ANION GAP 11 (6-14); AST (SGOT) 45 U/L (15-37); BLOOD UREA NITROGEN 61 mg/dL (8-26); BUN/CREATININE RATIO 32 (6-20); CALCIUM 8.9 mg/dL (8.5-10.1); CARBON DIOXIDE 19 mmol/L (21-32); CHLORIDE 107 mmol/L (98-107); CREATININE 1.9 mg/dL (0.7-1.3); GFR 35.1; GLUCOSE 136 mg/dL (70-99); POTASSIUM 4.5 mmol/L (3.5-5.1); SODIUM 137 mmol/L (136-145); TOTAL BILIRUBIN 0.3 mg/dL (0.2-1.0); TOTAL PROTEIN 7.7 g/dL (6.4-8.2)
[2017-11-05] MEDS: IPRATRPIUM/ALBUTEROL 0.5/2.5MG 3 ML NEBU. NEB ×4 (07:27→19:12)
[2017-11-05] MEDS: ASPIRIN 325 MG TABLET PO (08:00)
[2017-11-05] MEDS: FERROUS SULFATE 325 MG TABLET. PO (08:00)
[2017-11-05] MEDS: hydrALAZINE 25 MG TABLET PO ×3 (09:00→19:20)
[2017-11-05] MEDS: NYSTATIN 100,000 UNITS/ML 5 ML ORAL.SUSP. SWSW ×4 (09:00→19:21)
[2017-11-05] MEDS: LISINOPRIL 40 MG TABLET. PO (09:00)
[2017-11-05] MEDS: LACTOBACILLUS RHAMNOSUS GG 1 CAPSULE. PO ×2 (09:00→19:21)
[2017-11-05] MEDS: amLODIPine BESYLATE 10 MG TABLET PO (09:00)
[2017-11-05] MEDS: TPN PER PHARMACY MC (12:52)
[2017-11-05] MEDS: ENALAPRILAT 2.5 MG/2 ML VIAL. IV (15:43)
[2017-11-05] MEDS: ceFAZolin SODIUM IV Push 1 GM VIAL. IVP (15:43)
[2017-11-05] MEDS: AMINO ACIDS IV (21:18)
[2017-11-05] MEDS: DEXTROSE 70% IV (21:18)
[2017-11-05] MEDS: [UNRECOGNIZED DRUG - OTHER] IV (21:18)
[2017-11-05] MEDS: TOTAL PARENTERAL NUTRITION IV (21:18)
[2017-11-06 05:06] LABS: BASO # 0.2 x10^3/uL (0.0-0.2); BASO % 1 % (0-3); EOS # 0.3 x10^3/uL (0.0-0.7); EOS % 2 % (0-3); LYMPH # 1.3 x10^3/uL (1.0-4.8); LYMPH % 8 % (24-48); MEAN CORPUSCULAR HEMOGLOBIN 32 pg (25-35); MEAN CORPUSCULAR HGB CONC 32 g/dL (31-37); MEAN CORPUSCULAR VOLUME 100 fL (79-100); MONO # 1.2 x10^3/uL (0.0-1.1); MONO % 7 % (0-9); NEUT # 13.5 x10^3uL (1.8-7.7); NEUT % 82 % (31-73); PLATELET COUNT 293 x10^3/uL (140-400); RED CELL DISTRIBUTION WIDTH 15.5 % (11.5-14.5); WHITE BLOOD COUNT 16.5 x10^3/uL (4.0-11.0)
[2017-11-06 05:09] LABS: ADD MAN DIFF? YES
[2017-11-06 05:26] LABS: ALBUMIN 1.8 g/dL (3.4-5.0); ALBUMIN/GLOBULIN RATIO 0.3 (1.0-1.7); ALK PHOS 181 U/L (46-116); ALT (SGPT) 18 U/L (16-63); ANION GAP 10 (6-14); AST (SGOT) 31 U/L (15-37); BLOOD UREA NITROGEN 63 mg/dL (8-26); BUN/CREATININE RATIO 35 (6-20); CALCIUM 9.1 mg/dL (8.5-10.1); CARBON DIOXIDE 20 mmol/L (21-32); CHLORIDE 111 mmol/L (98-107); CREATININE 1.8 mg/dL (0.7-1.3); GFR 37.4; GLUCOSE 172 mg/dL (70-99); POTASSIUM 4.7 mmol/L (3.5-5.1); SODIUM 141 mmol/L (136-145); TOTAL BILIRUBIN 0.3 mg/dL (0.2-1.0); TOTAL PROTEIN 7.6 g/dL (6.4-8.2)
[2017-11-06] MEDS ORDERED: NALOXONE 0.4 MG/ML VIAL. (05:50)
[2017-11-06 05:54] LABS: POC GLUCOSE 180 mg/dL (70-99)
[2017-11-06] MEDS: ALBUTEROL SULFATE 2.5 MG/3 ML NEBU. NEB (05:57)
[2017-11-06] MEDS: NALOXONE 0.4 MG/ML VIAL. IV (06:01)
[2017-11-06] MEDS ORDERED: PROPOFOL 10 MG/ML (100ML) VIAL. IV ×2 (06:30→16:45)
[2017-11-06] MEDS: SUCCINYLCHOLINE 200 MG/10 ML VIAL. IV (06:30)
[2017-11-06] MEDS ORDERED: PROPOFOL 100 ML IV ×2 (06:31→16:34)
[2017-11-06 06:46] LABS: BASE EXCESS ABG -12 mmol/L (-3-3); FIO2 ABG 32; HCO3 ABG 18 mmol/L (21-28); PCO2 ABG 58 mmHg (35-46); PH ABG 7.11 (7.35-7.45); PO2 ABG 55 mmHg (65-108); SAT O2 ABG 81 % (92-99)
[2017-11-06 06:47] LABS: ALLEN TEST POS; O2 DELIVERY DEVICE NC
[2017-11-06] MEDS: IPRATRPIUM/ALBUTEROL 0.5/2.5MG 3 ML NEBU. NEB ×4 (07:21→20:10)
[2017-11-06 07:41] LABS: % BANDS 5 % (0-9); % BASOS 2 % (0-3); % EOS 1 % (0-5); % LYMPHS 6 % (24-48); % MONOS 6 % (0-10); % SEGS 80 % (35-66); ANISOCYTOSIS SLIGHT; PLT ESTIMATE ADEQUATE (ADEQUATE); POLYCHROMASIA SLIGHT
[2017-11-06 07:51] LABS: BASE EXCESS ABG -10 mmol/L (-3-3); HCO3 ABG 16 mmol/L (21-28); PCO2 ABG 38 mmHg (35-46); PH ABG 7.24 (7.35-7.45); PO2 ABG 229 mmHg (65-108); SAT O2 ABG 100 % (92-99)
[2017-11-06 07:52] LABS: FIO2 ABG 100
[2017-11-06] MEDS: LISINOPRIL 40 MG TABLET. PO (07:59)
[2017-11-06] MEDS: ASPIRIN 325 MG TABLET PO (07:59)
[2017-11-06] MEDS: LACTOBACILLUS RHAMNOSUS GG 1 CAPSULE. PO ×2 (07:59→21:19)
[2017-11-06] MEDS: NYSTATIN 100,000 UNITS/ML 5 ML ORAL.SUSP. SWSW ×4 (08:00→21:19)
[2017-11-06] MEDS: hydrALAZINE 25 MG TABLET PO ×4 (08:00→21:45)
[2017-11-06] MEDS: amLODIPine BESYLATE 10 MG TABLET PO (08:00)
[2017-11-06] MEDS: FERROUS SULFATE 325 MG TABLET. PO (08:00)
[2017-11-06] MEDS: cloNIDine TTS-3 1 PATCH PATCH.TDWK TD (08:07)
[2017-11-06] MEDS: oxyCODONE/APAP 7.5/325 1 TAB TABLET PO (12:41)
[2017-11-06] MEDS: TPN PER PHARMACY MC (13:26)
[2017-11-06] MEDS: IV 1/2 NORMAL SALINE 1,000 ML IV (15:07)
[2017-11-06] MEDS: SODIUM BICARB ADULT 8.4% 50 MEQ/50 ML DISP.SYRIN. IV (17:58)
[2017-11-06] MEDS: ceFAZolin SODIUM IV Push 1 GM VIAL. IVP (17:58)
[2017-11-06 21:10] LABS: MRSA BY PCR Negative (Negative)
[2017-11-06] MEDS: TOTAL PARENTERAL NUTRITION IV (22:15)
[2017-11-06] MEDS: [UNRECOGNIZED DRUG - OTHER] IV (22:15)
[2017-11-06] MEDS: AMINO ACIDS IV (22:15)
[2017-11-06] MEDS: DEXTROSE 70% IV (22:15)
[2017-11-07] MEDS: oxyCODONE/APAP 7.5/325 1 TAB TABLET PO (02:18)
[2017-11-07] MEDS: PROPOFOL 100 ML IV ×3 (06:09→21:30)
[2017-11-07 06:12] LABS: POC GLUCOSE 132 mg/dL (70-99)
[2017-11-07 06:19] LABS: ADD MAN DIFF? NO
[2017-11-07 06:26] LABS: BASO # 0.1 x10^3/uL (0.0-0.2); BASO % 1 % (0-3); EOS # 0.2 x10^3/uL (0.0-0.7); EOS % 2 % (0-3); LYMPH % 9 % (24-48); MEAN CORPUSCULAR HEMOGLOBIN 32 pg (25-35); MEAN CORPUSCULAR HGB CONC 33 g/dL (31-37); MEAN CORPUSCULAR VOLUME 99 fL (79-100); MONO # 0.8 x10^3/uL (0.0-1.1); MONO % 7 % (0-9); NEUT # 9.3 x10^3uL (1.8-7.7); NEUT % 81 % (31-73); PLATELET COUNT 240 x10^3/uL (140-400); RED BLOOD COUNT 1.93 x10^6/uL (4.30-5.70); RED CELL DISTRIBUTION WIDTH 15.5 % (11.5-14.5); WHITE BLOOD COUNT 11.5 x10^3/uL (4.0-11.0)
[2017-11-07 06:50] LABS: ALBUMIN 1.7 g/dL (3.4-5.0); ALBUMIN/GLOBULIN RATIO 0.3 (1.0-1.7); ALK PHOS 274 U/L (46-116); ALT (SGPT) 21 U/L (16-63); ANION GAP 9 (6-14); AST (SGOT) 35 U/L (15-37); BLOOD UREA NITROGEN 73 mg/dL (8-26); BUN/CREATININE RATIO 37 (6-20); CALCIUM 9.2 mg/dL (8.5-10.1); CARBON DIOXIDE 20 mmol/L (21-32); CHLORIDE 112 mmol/L (98-107); GFR 33.1; GLUCOSE 159 mg/dL (70-99); POTASSIUM 4.3 mmol/L (3.5-5.1); SODIUM 141 mmol/L (136-145); TOTAL BILIRUBIN 0.3 mg/dL (0.2-1.0); TOTAL PROTEIN 7.1 g/dL (6.4-8.2)
[2017-11-07 06:52] LABS: HEMOGLOBIN 6.2 g/dL (13.0-17.5)
[2017-11-07] MEDS: IPRATRPIUM/ALBUTEROL 0.5/2.5MG 3 ML NEBU. NEB ×4 (07:06→19:51)
[2017-11-07] MEDS ORDERED: IRON SUCROSE COMPLEX 200 MG in IV NORMAL SALINE 100ML 100 ML IV (07:30)
[2017-11-07 08:13] LABS: BASE EXCESS ABG -9 mmol/L (-3-3); HCO3 ABG 16 mmol/L (21-28); PCO2 ABG 30 mmHg (35-46); PH ABG 7.33 (7.35-7.45); PO2 ABG 144 mmHg (65-108); SAT O2 ABG 99 % (92-99)
[2017-11-07] MEDS: ERGOCALCIFEROL (VITAMIN D2) 50,000 UNIT CAPSULE. PO (09:00)
[2017-11-07] MEDS: FERROUS SULFATE 325 MG TABLET. PO (09:22)
[2017-11-07] MEDS: ASPIRIN 325 MG TABLET PO (09:22)
[2017-11-07] MEDS: NYSTATIN 100,000 UNITS/ML 5 ML ORAL.SUSP. SWSW ×4 (09:22→21:29)
[2017-11-07] MEDS: LACTOBACILLUS RHAMNOSUS GG 1 CAPSULE. PO ×2 (09:22→21:28)
[2017-11-07] MEDS: amLODIPine BESYLATE 10 MG TABLET PO (09:23)
[2017-11-07] MEDS: LISINOPRIL 40 MG TABLET. PO (09:23)
[2017-11-07] MEDS: hydrALAZINE 25 MG TABLET PO ×2 (09:24→15:11)
[2017-11-07] MEDS: IRON SUCROSE COMPLEX 200 MG in TOTAL VOLUME SYRINGE 0 ML IVP (09:26)
[2017-11-07] MEDS: ceFAZolin SODIUM IV Push 1 GM VIAL. IVP (15:12)
[2017-11-07] MEDS: VANCOMYCIN PER PHARMACY MC (16:45)
[2017-11-07] MEDS: VANCOMYCIN 1 GM in IV DEXTROSE 5% 250 ML IV (18:16)
[2017-11-07] MEDS: PIPERACILLIN/TAZOBACTAM 3.375 GM in IV NORMAL SALINE 50ML 50 ML IV (19:23)
[2017-11-07] MEDS ORDERED: fentaNYL PF VIAL 100 MCG/2 ML VIAL IV (20:00)
[2017-11-07] MEDS: fentaNYL PF VIAL 100 MCG/2 ML VIAL IV (20:07)
[2017-11-07] MEDS: MICAFUNGIN 100 MG in IV DEXTROSE 5% 100 ML IV (20:10)
[2017-11-07 20:47] LABS: BILIRUBIN,URINE NEGATIVE (NEG); CLARITY,URINE CLEAR; COLOR,URINE YELLOW; GLUCOSE,URINE NEGATIVE (NEG); NITRITE,URINE NEGATIVE (NEG); PH,URINE 5.5; PROTEIN,URINE 30 mg/dL (NEG-TRACE); UROBILINOGEN,URINE 0.2 mg/dL (0.2 mg/dL)
[2017-11-07 21:14] LABS: BACTERIA,URINE 0 /HPF (0-FEW); RBC,URINE OCC /HPF (0-2); WBC,URINE OCC /HPF (0-4)
[2017-11-07] MEDS: DARBEPOETIN ALFA 60 MCG/0.3 ML DISP.SYRIN. SQ (21:32)
[2017-11-07] MEDS ORDERED: dilTIAZem IV PUSH 25 MG/5 ML VIAL IVP (22:15)
[2017-11-07] MEDS: dilTIAZem IV PUSH 25 MG/5 ML VIAL IVP (22:52)
[2017-11-07] MEDS: dilTIAZem VIAL 125 MG in IV DEXTROSE 5% 100 ML IV (22:59)
[2017-11-08] MEDS: PIPERACILLIN/TAZOBACTAM 3.375 GM in IV NORMAL SALINE 50ML 50 ML IV ×3 (00:16→12:00)
[2017-11-08 00:59] LABS: POC GLUCOSE 118 mg/dL (70-99)
[2017-11-08] MEDS: PROPOFOL 100 ML IV (06:13)
[2017-11-08 06:28] LABS: POC GLUCOSE 129 mg/dL (70-99)
[2017-11-08 06:34] LABS: ADD MAN DIFF? NO
[2017-11-08 06:47] LABS: BASO # 0.1 x10^3/uL (0.0-0.2); BASO % 1 % (0-3); EOS # 0.3 x10^3/uL (0.0-0.7); EOS % 2 % (0-3); LYMPH # 1.1 x10^3/uL (1.0-4.8); LYMPH % 8 % (24-48); MEAN CORPUSCULAR HEMOGLOBIN 31 pg (25-35); MEAN CORPUSCULAR HGB CONC 32 g/dL (31-37); MEAN CORPUSCULAR VOLUME 99 fL (79-100); MONO # 0.9 x10^3/uL (0.0-1.1); MONO % 7 % (0-9); NEUT # 10.8 x10^3uL (1.8-7.7); NEUT % 82 % (31-73); PLATELET COUNT 244 x10^3/uL (140-400); RED BLOOD COUNT 1.94 x10^6/uL (4.30-5.70); RED CELL DISTRIBUTION WIDTH 15.8 % (11.5-14.5); WHITE BLOOD COUNT 13.2 x10^3/uL (4.0-11.0)
[2017-11-08 06:59] LABS: HEMATOCRIT 19.2 % (39.0-53.0); HEMOGLOBIN 6.1 g/dL (13.0-17.5)
[2017-11-08 07:05] LABS: ALBUMIN 1.6 g/dL (3.4-5.0); ALBUMIN/GLOBULIN RATIO 0.3 (1.0-1.7); ALK PHOS 362 U/L (46-116); ALT (SGPT) 35 U/L (16-63); ANION GAP 14 (6-14); AST (SGOT) 68 U/L (15-37); BLOOD UREA NITROGEN 67 mg/dL (8-26); BUN/CREATININE RATIO 37 (6-20); CALCIUM 8.9 mg/dL (8.5-10.1); CARBON DIOXIDE 19 mmol/L (21-32); CHLORIDE 111 mmol/L (98-107); CREATININE 1.8 mg/dL (0.7-1.3); GFR 37.4; GLUCOSE 149 mg/dL (70-99); POTASSIUM 4.1 mmol/L (3.5-5.1); SODIUM 144 mmol/L (136-145); TOTAL BILIRUBIN 0.5 mg/dL (0.2-1.0); TOTAL PROTEIN 7.1 g/dL (6.4-8.2)
[2017-11-08] MEDS: IPRATRPIUM/ALBUTEROL 0.5/2.5MG 3 ML NEBU. NEB ×3 (07:09→15:20)
[2017-11-08 07:57] LABS: BASE EXCESS ABG -7 mmol/L (-3-3); HCO3 ABG 18 mmol/L (21-28); PCO2 ABG 32 mmHg (35-46); PH ABG 7.36 (7.35-7.45); PO2 ABG 131 mmHg (65-108); SAT O2 ABG 98 % (92-99)
[2017-11-08] MEDS: ASPIRIN 325 MG TABLET PO (08:00)
[2017-11-08] MEDS: FERROUS SULFATE 325 MG TABLET. PO (08:00)
[2017-11-08 08:13] LABS: FIO2 ABG 40
[2017-11-08] MEDS: LISINOPRIL 40 MG TABLET. PO (09:00)
[2017-11-08] MEDS: NYSTATIN 100,000 UNITS/ML 5 ML ORAL.SUSP. SWSW ×2 (09:00→13:00)
[2017-11-08] MEDS: amLODIPine BESYLATE 10 MG TABLET PO (09:00)
[2017-11-08] MEDS: hydrALAZINE 25 MG TABLET PO ×2 (09:00→14:00)
[2017-11-08] MEDS: LACTOBACILLUS RHAMNOSUS GG 1 CAPSULE. PO (09:00)
[2017-11-08] MEDS ORDERED: LABETALOL 20 MG/4 ML DISP.SYRIN. IVP (10:30)
[2017-11-08] MEDS: METOPROLOL TARTRATE 5 MG/5 ML VIAL. IVP (12:00)
[2017-11-08] MEDS: MORPHINE SULFATE 20 MG/ML CONC SOLUTION. SL (18:31)
[2017-11-08] MEDS: LORazepam INTENSOL 2 MG/ML ORAL.CONC SL (18:31)
== END 2017-11-08 16:00 | disposition hospice, home (50) | DRG 871 ==
LOC: 1 WEST ICU 11-06 06:40 → 4 NORTH 10-16 22:24 → ER 12:44 → 4 NORTH 10-16 22:25
PROC: 0S9D4ZZ Drainage of Left Knee Joint, Percutaneous Endoscopic Approach (ICD-10-PCS; 2017-10-14 11:15)
PROC: 5A1945Z Respiratory Ventilation, 24-96 Consecutive Hours (ICD-10-PCS; principal; 2017-10-14 13:23)
PROC: 0BH17EZ Insertion of Endotracheal Airway into Trachea, Via Natural or Artificial Opening (ICD-10-PCS; 2017-10-14 13:23)
PROC: 02H633Z Insertion of Infusion Device into Right Atrium, Percutaneous Approach (ICD-10-PCS; 2017-10-14 13:23)
PROC: B244ZZZ Ultrasonography of Right Heart (ICD-10-PCS; 2017-10-14 13:23)
PROC: B2141ZZ Fluoroscopy of Right Heart using Low Osmolar Contrast (ICD-10-PCS; 2017-10-14 13:23)
DX: A41.9 Sepsis, unspecified organism (principal); G92 Toxic encephalopathy; J96.01 Acute respiratory failure with hypoxia; N17.0 Acute kidney failure with tubular necrosis; E43 Unspecified severe protein-calorie malnutrition; E87.4 Mixed disorder of acid-base balance; J18.9 Pneumonia, unspecified organism; I13.2 Hypertensive heart and chronic kidney disease with heart failure and with stage 5 chronic kidney disease, or end stage renal disease; E11.22 Type 2 diabetes mellitus with diabetic chronic kidney disease; D62 Acute posthemorrhagic anemia; J44.0 Chronic obstructive pulmonary disease with (acute) lower respiratory infection; J98.11 Atelectasis; J44.1 Chronic obstructive pulmonary disease with (acute) exacerbation; M00.9 Pyogenic arthritis, unspecified; M25.062 Hemarthrosis, left knee; N39.0 Urinary tract infection, site not specified; E11.42 Type 2 diabetes mellitus with diabetic polyneuropathy; I48.91 Unspecified atrial fibrillation; W18.30XA Fall on same level, unspecified, initial encounter; I50.9 Heart failure, unspecified; F03.90 Unspecified dementia, unspecified severity, without behavioral disturbance, psychotic disturbance, mood disturbance, and anxiety; M10.9 Gout, unspecified; F41.9 Anxiety disorder, unspecified; F32.9 Major depressive disorder, single episode, unspecified; B95.61 Methicillin susceptible Staphylococcus aureus infection as the cause of diseases classified elsewhere; E78.5 Hyperlipidemia, unspecified; G47.33 Obstructive sleep apnea (adult) (pediatric); I16.0 Hypertensive urgency; K21.9 Gastro-esophageal reflux disease without esophagitis; N18.3 Chronic kidney disease, stage 3 (moderate); K57.30 Diverticulosis of large intestine without perforation or abscess without bleeding; M43.17 Spondylolisthesis, lumbosacral region; M46.90 Unspecified inflammatory spondylopathy, site unspecified; M48.02 Spinal stenosis, cervical region; Z51.5 Encounter for palliative care; N40.0 Benign prostatic hyperplasia without lower urinary tract symptoms; R13.10 Dysphagia, unspecified; M19.90 Unspecified osteoarthritis, unspecified site; Z66 Do not resuscitate; Z99.2 Dependence on renal dialysis; Y93.89 Activity, other specified; Y92.89 Other specified places as the place of occurrence of the external cause; Y99.8 Other external cause status; Z68.20 Body mass index [BMI] 20.0-20.9, adult; Z87.891 Personal history of nicotine dependence
CPT/HCPCS: 36415; 36556; 36569; 36581; 36600; 70450; 70553; 71045; 71046; 72125; 72192; 73030; 73521; 73560; 73562; 73700; 74176; 76770; 76937; 77001; 80048; 80053; 80069; 80076; 80202; 81001; 82140; 82306; 82550; 82607; 82805; 82962; 83520; 83540; 83550; 83605; 83690; 83735; 84100; 84300; 84439; 84443; 84478; 84484; 84550; 85007; 85025; 85027; 85610; 85651; 85730; 86021; 86160; 86431; 86481; 86701; 86705; 86706; 86850; 86900; 86901; 86920; 87040; 87071; 87075; 87086; 87186; 87205; 87340; 87641; 87804; 87804-59; 89050; 89060; 92526-GN; 92610-GN; 93005; 93312; 93325; 93880; 94002; 94003; 94640; 94760; 96374; 97110-GO; 97110-GP; 97116-GP; 97162-GP; 97164-GP; 97166-GO; 97168; 97168-GO; 97530-GO; 97530-GP; 97535-GO; 99152; 99285; 99285-25; A4215; A9585; C1750; C1751; C1769; C1892; C9113; J0171; J0330; J0610; J0690; J0696; J0881; J1100; J1650; J1756; J2020; J2060; J2248; J2250; J2270; J2310; J2405; J2543; J2704; J3010; J3370; J3475; J3490; J7030; J7613; J7620